=== PATIENT | male | born 1965 | race Caucasian/White ===

== ENCOUNTER 2016-10-25 09:01 | Day surgery (SDC) | payer OTHER ==
[~2016-10-25] VITALS: Ht 177.8 cm; Wt 65.5 kg
[~2016-10-25 09:01] MED LIST: AUGM500T7 PO; FENT12DI T-DERMAL; OXYC1CAP PO; OXYC5 PO; PANT20 PO
[2016-10-25 09:22] VITALS: BP 154/80; PULSE 65; RESP 20; TEMP 97.5; O2SAT 98
[2016-10-25] MEDS ORDERED: AMLO5TAB2 PO (09:50)
[2016-10-25 10:09] LABS: APTT (PATIENT) 33.1 SEC (24.3-30.1); INTERNATIONAL NORMALIZED RATIO 1.1 RATIO; PROTHROMBIN TIME - PATIENT 12.4 SEC (9.8-11.6)
[2016-10-25] MEDS ORDERED: SODIUM CHLORIDE 0.9% FLUSH 10 ML FLUSH IV FLUSH PRN (11:15)
[2016-10-25] MEDS ORDERED: LEVOFLOXACIN 500 MG PREMIX 100 ML - biliary drainage catheter/stent insertion IV SCH (11:30)
[2016-10-25] MEDS ORDERED: SODIUM CHLORIDE 0.9% 1000 ML IV SCH (11:30)
== END 2016-10-25 10:05 | disposition home or self-care (01) ==
LOC: HROP 09:01 → HRIP 09:07 → HROP 10:05
PROVIDERS: ATTEND Internal Medicine Gastroenterology
DX: C25.9 Malignant neoplasm of pancreas, unspecified (principal); I10 Essential (primary) hypertension
CPT/HCPCS: 85610; 85730; 99211; J1642; G0463

== ENCOUNTER 2017-06-26 09:58 | Day surgery (SDC) | payer OTHER ==
[~2017-06-26 09:58] MED LIST changes: +AMLO5TAB2 PO; -AUGM500T7 PO; -FENT12DI T-DERMAL; -OXYC1CAP PO; -OXYC5 PO; -PANT20 PO
[2017-06-26 10:34] VITALS: BP 180/98; PULSE 69; RESP 14; TEMP 97.7; O2SAT 98
[2017-06-26] MEDS ORDERED: LIDOCAINE HCL 1% 20 ML VIAL ONE (11:44)
[2017-06-26 11:45] VITALS: BP 144/82; PULSE 60; RESP 18; TEMP 97.8; O2SAT 99
[2017-06-26 12:10] VITALS: BP 156/82; PULSE 64; RESP 17; O2SAT 99
--- NOTE | 2017-06-26 12:14 | RADRPT ---
EXAM DATE/TIME: 06/26/2017 10:23 [facility] COMPARISON: No previous studies available for comparison. INDICATIONS : Ascites. MEDICAL HISTORY : Carcinoma, pancreas. Carcinoma, bone. Carinoma, liver. HTN. Ascites. SURGICAL HISTORY : Port placement. Biliary duct stent placement. ERCP. Percutaneous drain. ENCOUNTER: Initial ACUITY: 1 week PAIN SCORE: 5/10 LOCATION: Left lower quadrant FLUID: Total volume of 3,350 cc of clear, yellow fluid was removed. Fluid was discarded. Paracentesis was therapeutic only. Post procedure scanning reveals no hematoma or other complication. TECHNIQUE: 1. Ultrasound guidance for abdominal paracentesis. 2. Paracentesis. The risks, benefits, and alternatives to ultrasound guided paracentesis were explained to the patient in detail including the risk of bleeding and infection. Written and verbal informed consent was obt ained. With the patient on the ultrasound table, ultrasound imaging was used to select the most appropriate approach for paracentesis. Overlying skin was prepped and draped in the usual sterile fashion and wi th a local anesthetic, a dermatotomy was made with an 11 blade scalpel. A 6 [place] Bry-N-ejanvcza ca theter was introduced into the peritoneal cavity and fluid was collected. The patient tolerated the procedure well and left the ultrasound suite in stable condition. CONCLUSION: Uncomplicated ultrasound guided paracentesis. Saad Lyons Jr., MD on June 26, 2017 at 12:12 Board Certified Radiologist. This report was verified electronically.
== END 2017-06-26 12:20 | disposition home or self-care (01) ==
LOC: HRAD 09:58 → HRIP 10:02 → HRAD 12:20
PROVIDERS: ATTEND Internal Medicine Hematology & Oncology
DX: R18.8 Other ascites (principal)
CPT/HCPCS: 49083; C1729

== ENCOUNTER 2017-07-11 02:36 | Inpatient (IN) | payer MEDICAID, OTHER ==
[~2017-07-11] VITALS: Ht 172.7 cm; Wt 66.0 kg
[2017-07-11] VITALS (14 sets, daily range): BP systolic 148–182; BP diastolic 72–100; PULSE 96–124; RESP 13–24; TEMP 96–97.9; O2SAT 94–99
[2017-07-11] MEDS ORDERED: OXYC1CAP PO (03:01)
[2017-07-11] MEDS ORDERED: FURO1TAB62 PO (03:01)
--- NOTE | 2017-07-11 03:13 | PD ---
HPI Chief Complaint: Altered Mental Status Time Seen by Provider: 02:49 Travel History International Travel<30 days: No Contact w/Intl Traveler<30days: No Traveled to known affect area: No History of Present Illness HPI 51-year-old male was brought in by family member for mental confusion, increased generalized malaise and weakness, decrease in appetite, intermittent nausea vomiting for the past 2 days. Patient has history of pancreatic cancer. Patient was on Folfirinox hemotherapy. Patient was unable to tolerate more chemotherapy due to cytopenia. Chemotherapy was changed to Keytruda. Patient had one cycle of the children 2 weeks ago. Family member states the patient has increasing delirium, confusion, decreased appetite with nausea vomiting for the past 2 days. Patient has history of chronic abdominal pain with ascites that the post paracentesis in the past. Patient has history hypertension and was on amlodipine and past. Patient has not taken his amlodipine since April. Patient has been taking Lasix 20 mg as needed for swelling and ascites. Patient had chronic abdominal pain with ascites. Patient has history of COPD, metal stent placement biliary duct, hypertension. Family member reported no fever at home. Family members reported no coughing congestion. Family member reported increasing jaundice of the skin in the eyes for the past 2 days. PFSH Past Medical History Heart Rhythm Problems: No Cancer: Yes (PANCREATIC ) Cardiovascular Problems: Yes (HTN) High Cholesterol: No Chemotherapy: Yes Chest Pain: No Congestive Heart Failure: No Endocrine: No Gastrointestinal Disorders: No Genitourinary: No Heparin Induced Thrombocytopen: No Hypertension: Yes Immune Disorder: No Implanted Vascular Access Dvce: No Musculoskeletal: No Neurologic: No Psychiatric: No Reproductive: No Respiratory: No Immunizations Current: No Radiation Therapy: No Sickle Cell Disease: No Past Surgical History Thoracic Surgery: Yes (POT PLACEMENT) Other Surgery: No Social History Alcohol Use: No (6-12 beer/day for the past 30 years) Tobacco Use: No Substance Use: No Allergies-Medications (Allergen,Severity, Reaction): Coded Allergies: No Known Allergies (Unverified , 02/24/16) Reported Meds & Prescriptions Reported Meds & Active Scripts Active Reported Amlodipine (Amlodipine Besylate) 5 Mg Tab 5 Mg PO DAILY Review of Systems General / Constitutional: No: Fever Eyes: No: Visual changes HENT: No: Headaches Cardiovascular: No: Chest Pain or Discomfort Respiratory: No: Shortness of Breath Gastrointestinal: Positive: Nausea, Vomiting, No: Abdominal Pain Genitourinary: No: Dysuria Musculoskeletal: No: Pain Skin: No Rash Neurologic: No: Weakness Psychiatric: No: Depression Endocrine: No: Polydipsia Hematologic/Lymphatic: No: Easy Bruising Physical Exam Narrative GENERAL: Thin male, lying in bed, minimal vocalization, no acute distress. SKIN: Focused skin assessment warm/dry. The skin is jaundice. HEAD: Normocephalic. EYES: Bilateral scleral icterus. No injection or drainage. NECK: Supple, trachea midline. No JVD or lymphadenopathy. CARDIOVASCULAR: Regular rate and rhythm without murmurs, gallops, or rubs. RESPIRATORY: Breath sounds equal bilaterally. No accessory muscle use. GASTROINTESTINAL: Abdomen soft, non-tender, nondistended. MUSCULOSKELETAL: No cyanosis, or edema. BACK: Nontender without obvious deformity. No CVA tenderness. Neurologic exam: Patient's awake and alert however minimal globalization. Patient moves all extremity well. No obvious focal neurological deficit. Data Data Last Documented VS Vital Signs Date Time Temp Pulse Resp B/P (MAP) Pulse Ox O2 Delivery O2 Flow Rate FiO2 07/11/17 04:35 96 20 151/77 (101) 96 Room Air 07/11/17 02:38 97.9 Orders Orders Complete Blood Count With Diff (07/11/17 03:01) Comprehensive Metabolic Panel (07/11/17 03:01) Prothrombin Time / Inr (Pt) (07/11/17 03:01) Act Partial Throm Time (Ptt) (07/11/17 03:01) Blood Culture (07/11/17 03:01) Lipase (07/11/17 03:01) Urinalysis - C+S If Indicated (07/11/17 03:01) Ammonia (07/11/17 03:01) Chest, Single Ap (07/11/17 03:01) Ct Brain W/O Iv Contrast(Rout) (07/11/17 03:01) Iv Access Insert/Monitor (07/11/17 03:01) Ecg Monitoring (07/11/17 03:01) Oximetry (07/11/17 03:01) Lactic Acid (07/11/17 03:01) Sodium Chlor 0.9% 1000 Ml Inj (Ns 1000 M (07/11/17 04:30) Vancomycin Inj (Vancomycin Inj) (07/11/17 04:30) Piperacil-Tazo 3.375 Gm Premix (Zosyn 3. (07/11/17 04:30) Us Abdomen Gallbladder (07/11/17 04:56) Labs Laboratory Tests Test 07/11/17 03:15 07/11/17 04:20 Prothrombin Time 39.5 SEC Prothromb Time International Ratio 3.9 RATIO Activated Partial Thromboplast Time 50.1 SEC Blood Urea Nitrogen 37 MG/DL Creatinine 1.23 MG/DL Random Glucose 101 MG/DL Total Protein 7.4 GM/DL Albumin 2.1 GM/DL Calcium Level 8.0 MG/DL Alkaline Phosphatase 184 U/L Aspartate Amino Transf (AST/SGOT) 91 U/L Alanine Aminotransferase (ALT/SGPT) 47 U/L Total Bilirubin 21.5 MG/DL Sodium Level 134 MEQ/L Potassium Level 4.0 MEQ/L Chloride Level 99 MEQ/L Carbon Dioxide Level 25.9 MEQ/L Anion Gap 9 MEQ/L Estimat Glomerular Filtration Rate 62 ML/MIN Lactic Acid Level 6.3 mmol/L Ammonia 91 MCMOL/L Lipase 46 U/L MDM Medical Decision Making Medical Screen Exam Complete: Yes Emergency Medical Condition: Yes Interpretation(s) Last Impressions Head CT 07/11/17300 Signed Impressions: Service Date/Time: Tuesday, July 11, 2017 03:23 - CONCLUSION: No acute disease. Saad Lyons Jr., MD Chest X-Ray 07/11/17300 Signed Impressions: Service Date/Time: Tuesday, July 11, 2017 03:16 - CONCLUSION: Blunting of the right costophrenic angle I either related to a small effusion or pleural scarring. Otherwise, no infiltrates. Saad Lyons Jr., MD 4:21 AM. Lactic acid 6.3 . Ammonia 91. INR 3.9. Differential Diagnosis Differential diagnosis including acute exacerbation of chronic condition, hepatitis, pancreatitis, biliary obstruction, electrolyte imbalance, dehydration , sepsis. Narrative Course 51-year-old male with increasing jaundice, delirium, confusion, decreased appetite, nausea vomiting. History of pancreatic cancer. Patient is on chemotherapy. Normal saline solution 1 L IV bolus. Vancomycin 1 g IV. Zosyn 3.375 g IV. Diagnosis Primary Impression: Jaundice Additional Impression: Hepatic encephalopathy Admitting Information Admitting Physician Requests: Admit Edin Blanc MD Jul 11, 2017 03:13
[2017-07-11 03:47] LABS: INTERNATIONAL NORMALIZED RATIO 3.9 RATIO; PROTHROMBIN TIME - PATIENT 39.5 SEC (9.8-11.6)
--- NOTE | 2017-07-11 03:48 | RADRPT ---
EXAM DATE/TIME: 07/11/2017 03:16 [facility] COMPARISON: No previous studies available for comparison. INDICATIONS : Short of breath. MEDICAL HISTORY : Carcinoma, pancreas. Carcinoma, bone. Carinoma, liver. HTN. Ascites. SURGICAL HISTORY : Port placement. Biliary duct stent placement. Percutaneous drain. ENCOUNTER: Initial ACUITY: 1 day PAIN SCORE: Non-responsive. LOCATION: Bilateral chest FINDINGS: A single view of the chest demonstrates the lungs to be symmetrically aerated without evidence of mas s, infiltrate or effusion. Blunting of the right costophrenic angle. The cardiomediastinal contours are unremarkable. Osseous structures are intact. CONCLUSION: Blunting of the right costophrenic angle I either related to a small effusion or pleural scarring. Ot herwise, no infiltrates. Saad Lyons Jr., MD on July 11, 2017 at 3:46 Board Certified Radiologist. This report was verified electronically.
--- NOTE | 2017-07-11 03:57 | RADRPT ---
EXAM DATE/TIME: 07/11/2017 03:23 [facility] COMPARISON: No previous studies available for comparison. INDICATIONS : Altered mental status. RADIATION DOSE: 33.02 CTDIvol (mGy) MEDICAL HISTORY : Cerebrovascular disease. Carcinoma, pancreas. Hypertension. SURGICAL HISTORY : None. ENCOUNTER: Initial ACUITY: 1 day PAIN SCALE: 0/10 LOCATION: cranial TECHNIQUE: Multiple contiguous axial images were obtained of the head. Using automated exposure control and adj ustment of the mA and/or kV according to patient size, radiation dose was kept as low as reasonably a chievable to obtain optimal diagnostic quality images. DICOM format image data is available electro nically for review and comparison. FINDINGS: CEREBRUM: The ventricles are normal for age. No evidence of midline shift, mass lesion, hemorrhage or acute in farction. No extra-axial fluid collections are seen. POSTERIOR FOSSA: The cerebellum and brainstem are intact. The 4th ventricle is midline. The cerebellopontine angle i s unremarkable. EXTRACRANIAL: The visualized portion of the orbits is intact. SKULL: The calvaria is intact. No evidence of skull fracture. CONCLUSION: No acute disease. Saad Lyons Jr., MD on July 11, 2017 at 3:55 Board Certified Radiologist. This report was verified electronically.
[2017-07-11] MEDS ORDERED: VANCOMYCIN INJ 1,000 MG in SODIUM CHLOR 0.9% 250 ML INJ 250 ML IV ONE (04:30)
[2017-07-11] MEDS ORDERED: SODIUM CHLOR 0.9% 1000 ML INJ 1,000 ML IV ONE (04:30)
[2017-07-11] MEDS ORDERED: PIPERACIL-TAZO 3.375 GM PREMIX 50 ML IV ONE (04:30)
[2017-07-11 04:44] LABS: ALBUMIN 2.1 GM/DL (3.4-5.0); ALKALINE PHOSPHATASE 184 U/L (45-117); ALT (GPT) 47 U/L (12-78); AST (GOT) 91 U/L (15-37); BICARBONATE 25.9 MEQ/L (21.0-32.0); BLOOD UREA NITROGEN 37 MG/DL (7-18); CHLORIDE 99 MEQ/L (98-107); CREATININE 1.23 MG/DL (0.60-1.30); GLOMERULAR FILTRATION RATE 62 ML/MIN (>89); GLUCOSE,RANDOM 101 MG/DL (74-106); LIPASE 46 U/L (73-393); SODIUM (NA) 134 MEQ/L (136-145); TOTAL BILIRUBIN ADULT 21.5 MG/DL (0.2-1.0); TOTAL PROTEIN 7.4 GM/DL (6.4-8.2)
[2017-07-11] MEDS ORDERED: BISACODYL 10 MG SUPP RECTAL PRN (05:15)
[2017-07-11] MEDS ORDERED: NALOXONE HCL 0.4 MG/ML AMP IV PUSH PRN (05:15)
[2017-07-11] MEDS ORDERED: SODIUM CHLORIDE 0.9% FLUSH 10 ML FLUSH IV FLUSH PRN (05:15)
[2017-07-11] MEDS ORDERED: SENNOSIDES 8.6 MG TAB PO PRN (05:15)
[2017-07-11] MEDS ORDERED: MAGNESIUM HYDROXIDE SUSP 30 ML CUP PO PRN (05:15)
[2017-07-11 05:33] LABS: AUTOMATED NEUTROPHIL # 6.2 TH/MM3 (1.8-7.7); BASOPHIL % 0.3 % (0.0-2.0); EOSINOPHIL % 0.6 % (0.0-4.0); HEMATOCRIT 36.7 % (39.0-51.0); HEMOGLOBIN 13.1 GM/DL (13.0-17.0); LYMPH % 11.7 % (9.0-44.0); LYMPHOCYTE # 0.9 TH/MM3 (1.0-4.8); MEAN CELL VOLUME 96.7 FL (80.0-100.0); MEAN CORPUSCULAR HEMOGLOBIN 34.4 PG (27.0-34.0); MEAN CORPUSCULAR HGB CONC 35.6 % (32.0-36.0); MEAN PLATELET VOLUME 7.7 FL (7.0-11.0); MONO % 7.1 % (0.0-8.0); MONOCYTE # 0.6 TH/MM3 (0-0.9); NEUT % 80.3 % (16.0-70.0); PLATELET COUNT 83 TH/MM3 (150-450); RED CELL DISTRIBUTION WIDTH 17.4 % (11.6-17.2); WHITE BLOOD COUNT 7.8 TH/MM3 (4.0-11.0)
[2017-07-11] MEDS ORDERED: Vancomycin Consult Pharmacy 1 EA OTHER SCH (05:45)
--- NOTE | 2017-07-11 05:59 | HHI.HP ---
[facility] Primary Care Physician Admission Diagnosis jaundice. Hepatic encephalopathy. History of pancreatic cancer. Diagnoses: Travel History International Travel<30 Days: No Contact w/Intl Traveler <30 Da: No Traveled to Known Affected Are: No History of Present Illness 51-year-old male with a past medical history significant for pancreatic cancer and hypertension presents to the emergency department with altered mental status that began yesterday. The patient's reports that he has had intermittent coughing and vomiting for the past 2 days. She reports that yesterday he became altered describing him as confused and disoriented. The patient did not know where he was when he was in his own home. She also reports noticing increased scleral icterus and jaundice that began on 07/08. Vision is currently undergoing chemotherapy. His oncologist is Dr. Tan. On arrival to the emergency department the patient was tachycardic at 124. He was afebrile at 97.9. BP 179/100. Pulse ox 95% on room air. Lab values significant for a total bilirubin of 21.5 (was 1.8 on 06/28). Ammonia 91. Lactic acid 6.3. CBC pending. Head CT negative for acute intracranial process. The patient is altered, A&O 0. Review of Systems Unable to obtain secondary to patient's clinical condition Past Family Social History Past Medical History Hypertension Pancreatic cancer diagnosed 02/24/16 Past Surgical History Vasectomy Port placement in 2015 CT-guided biopsy in 2015 Percutaneous drain in 2059 Reported Medications Reported Meds & Active Scripts Active Reported Amlodipine (Amlodipine Besylate) 5 Mg Tab 5 Mg PO DAILY Allergies: Coded Allergies: No Known Allergies (Unverified , 02/24/16) Family History Negative for CAD/DM Social History Per , the patient does not drink alcohol, smoke cigarettes or take illicit drugs Physical Exam Vital Signs Vital Signs Date Time Temp Pulse Resp B/P (MAP) Pulse Ox O2 Delivery O2 Flow Rate FiO2 07/11/17 04:35 96 20 151/77 (101) 96 Room Air 07/11/17 03:38 109 24 175/88 (117) 97 Room Air 07/11/17 03:27 106 22 98 Room Air 07/11/17 02:55 108 24 182/98 (126) 99 Room Air 07/11/17 02:38 97.9 124 18 179/100 (126) 95 Room Air Physical Exam GENERAL: Cachectic male lying in bed SKIN: Jaundice, + scleral icterus HEAD: Atraumatic. Normocephalic. No temporal or scalp tenderness. EYES: Pupils equal round and reactive. Extraocular motions intact. ENT: Nose without bleeding, purulent drainage or septal hematoma. Throat without erythema, tonsillar hypertrophy or exudate. Uvula midline. Airway patent. NECK: Trachea midline. No JVD or lymphadenopathy. CARDIOVASCULAR: Regular rate and rhythm without murmurs, gallops, or rubs. RESPIRATORY: Clear to auscultation. Breath sounds equal bilaterally. No wheezes , rales, or rhonchi. GASTROINTESTINAL: Abdomen soft, non-tender, + ascites. No guarding. MUSCULOSKELETAL: 2+ pitting edema to the midshin NEUROLOGICAL: Patient babbling incoherently. Unable to answer questions. Moves all 4 extremities spontaneously. Laboratory Laboratory Tests Test 07/11/17 03:15 07/11/17 05:15 Prothrombin Time 39.5 Prothromb Time International Ratio 3.9 Activated Partial Thromboplast Time 50.1 Blood Urea Nitrogen 37 Creatinine 1.23 Random Glucose 101 Total Protein 7.4 Albumin 2.1 Calcium Level 8.0 Alkaline Phosphatase 184 Aspartate Amino Transf (AST/SGOT) 91 Alanine Aminotransferase (ALT/SGPT) 47 Total Bilirubin 21.5 Sodium Level 134 Potassium Level 4.0 Chloride Level 99 Carbon Dioxide Level 25.9 Anion Gap 9 Estimat Glomerular Filtration Rate 62 Lactic Acid Level 6.3 Ammonia 91 Lipase 46 Date/Time Source Procedure Growth Status 07/11/17 03:15 Blood Peripheral Aerobic Blood Culture Pending Received 07/11/17 03:15 Blood Peripheral Anaerobic Blood Culture Pending Received Result Diagram: 07/11/17 0315 Caprini VTE Risk Assessment Caprini VTE Risk Assessment: Mod/High Risk (score >= 2) Caprini Risk Assessment Model Point Value = 1 Point Value = 2 Point Value = 3 Point Value = 5 Age 41-60 Minor surgery BMI > 25 kg/m2 Swollen legs Varicose veins or History of unexplained or recurrent spontaneous Oral contraceptives or hormone replacement Sepsis (< 1 month) Serious lung disease, including pneumonia (< 1 month) Abnormal pulmonary function Acute myocardial infarction Congestive heart failure (< 1 month) History of inflammatory bowel disease Medical patient at bed rest Age 61-74 Arthroscopic surgery Major open surgery (> 45 min) Laparoscopic surgery (> 45 min) Malignancy Confined to bed (> 72 hours) Immobilizing plaster cast Central venous access Age >= 75 History of VTE Family history of VTE Factor V Leiden Prothrombin [id number] Lupus anticoagulant Anticardiolipin antibodies Elevated serum homocysteine Heparin-induced thrombocytopenia Other congenital or acquired thrombophilia Stroke (< 1 month) Elective arthroplasty Hip, pelvis, or leg fracture Acute spinal cord injury (< 1 month) Prophylaxis Regimen Total Risk Factor Score Risk Level Prophylaxis Regimen 0-1 Low Early ambulation 2 Moderate Order ONE of the following: *Sequential Compression Device (SCD) *Heparin 5000 units SQ BID 3-4 Higher Order ONE of the following medications: *Heparin 5000 units SQ TID *Enoxaparin/Lovenox 40 mg SQ daily (WT < 150 kg, CrCl > 30 mL/min) *Enoxaparin/Lovenox 30 mg SQ daily (WT < 150 kg, CrCl > 10-29 mL/min) *Enoxaparin/Lovenox 30 mg SQ BID (WT < 150 kg, CrCl > 30 mL/min) AND/OR *Sequential Compression Device (SCD) 5 or more Highest Order ONE of the following medications: *Heparin 5000 units SQ TID (Preferred with Epidurals) *Enoxaparin/Lovenox 40 mg SQ daily (WT < 150 kg, CrCl > 30 mL/min) *Enoxaparin/Lovenox 30 mg SQ daily (WT < 150 kg, CrCl > 10-29 mL/min) *Enoxaparin/Lovenox 30 mg SQ BID (WT < 150 kg, CrCl > 30 mL/min) AND *Sequential Compression Device (SCD) Assessment and Plan Assessment and Plan Assessment/plan: 1. Pancreatic cancer/AMS/Jaundice/bilirubinemia/hepatic encephalopathy T bili 21.5, ammonia 91, AST/ALT 91/47 Patient with history of pancreatic duct stent, concern for blockage. Ultrasound pending for further evaluation. Consult gastroenterology, medical oncology - appreciate recommendations Lactulose for elevated ammonia 2. Elevated lactic acid Suspect secondary to above Chest x-ray without infiltrates CBC pending UA pending Vancomycin/Zosyn until infectious rule out completed Holding IV fluid hydration secondary to ascites and low albumin 3. Ascites Chronic Last paracentesis on 06/26 Continue Lasix 4. Hypertension Continue amlodipine FEN NPO Electrolytes: monitor and replete prn SCDs Holding pharmacologic anticoagulation as patient may require procedure Physician Certification 2 Midnight Certification Type: Admission for Inpatient Services Order for Inpatient Services The services are ordered in accordance with Medicare regulations or non- Medicare payer requirements, as applicable. In the case of services not specified as inpatient-only, they are appropriately provided as inpatient services in accordance with the 2-midnight benchmark. Estimated LOS (days): 2 2 days is the estimated time the patient will need to remain in the hospital, assuming treatment plan goals are met and no additional complications. Post-Hospital Plan: Not yet determined Leti Brennan MD Jul 11, 2017 05:59
[2017-07-11 06:29] LABS: BANDS 18 % (0-6); LYMPHOCYTES 12 % (9-44); MONOCYTES 3 % (0-8); NEUTROPHIL # MANUAL DIFF 6.6 TH/MM3 (1.8-7.7); POLYS (SEG NEUTROPHILS) 66 % (16-70)
[2017-07-11 06:30] LABS: TOXIC VACUOLATION PRESENT (NONE SEEN)
[2017-07-11] MEDS: SODIUM CHLORIDE 0.9% FLUSH 10 ML FLUSH IV FLUSH SCH ×2 (08:19→19:47)
--- NOTE | 2017-07-11 08:32 | RADRPT ---
EXAM DATE/TIME: 07/11/2017 07:54 [facility] COMPARISON: CT ABDOMEN & PELVIS W/O CONTRAST, May 19, 2017, 14:16. US GUIDED ABD PARACENTESIS, June 26, 2017, 10:23. INDICATIONS : Right upper quadrant pain. MEDICAL HISTORY : Carcinoma, pancreas. Hypertension. SURGICAL HISTORY : Port placement. Biliary duct stent placement. Chemotherapy. ENCOUNTER: Initial ACUITY: 1 day PAIN SCORE: 7/10 LOCATION: Right upper quadrant MEASUREMENTS: LIVER: 16.7 cm length FINDINGS: The examination was limited due to the patient being in abdominal pain. LIVER: The liver is heterogeneous and quite small in size consistent with cirrhosis. There is ascites diffus mello throughout the upper abdomen. The patient has a known 1.9 cm lesion within the liver. This is not effectively evaluated by ultrasound. COMMON DUCT: No intraluminal mass or stone visualized. GALLBLADDER: There is minimal sludge in the dependent portion the gallbladder. No stones are seen. There is some g allbladder wall thickening however, this is not an unexpected finding in a trace of ascites. PANCREAS: The patient has known pancreatic carcinoma. The pancreas was not well-visualized RIGHT KIDNEY: No evidence of hydronephrosis, stone, or mass. CONCLUSION: 1. There is diffuse abdominal ascites. 2. The liver appears quite small and heterogeneous in echotexture consistent with cirrhosis. The noman ent has known pancreatic cancer with several small hepatic lesions. These were not seen by the ultras ound. I do not see evidence of intrahepatic biliary ductal dilation. The patient has a known biliary stent in place. 3. There is minimal sludge in the dependent portion the gallbladder. There is gallbladder wall thicke evi however, this is not an unexpected finding with the presence of ascites. Johnathan Marquis MD on July 11, 2017 at 8:26 Board Certified Radiologist. This report was verified electronically.
[2017-07-11 08:49] LABS: LACTIC ACID SEPSIS PROTOCOL 3.8 mmol/L (0.4-2.0)
[2017-07-11] MEDS ORDERED: FUROSEMIDE 20 MG TAB PO SCH (09:00)
[2017-07-11] MEDS: DOCUSATE SODIUM 50 MG/SENNA 8.6 MG TAB PO SCH ×2 (09:00→21:00)
[2017-07-11] MEDS: LACTULOSE SYRUP 20 GM/30 ML CUP PO SCH ×4 (09:50→21:17)
[2017-07-11] MEDS: amLODIPine BESYLATE 5 MG TAB PO SCH (09:51)
[2017-07-11] MEDS: RIFAXIMIN 550 MG TAB PO SCH ×2 (09:51→21:17)
--- NOTE | 2017-07-11 10:42 | HHI.PR ---
Subjective Remarks 51-year-old male with a past medical history significant for pancreatic cancer and hypertension presents to the emergency department with altered mental status that began yesterday. The patient's reports that he has had intermittent coughing and vomiting for the past 2 days. She reports that yesterday he became altered describing him as confused and disoriented. The patient did not know where he was when he was in his own home. She also reports noticing increased scleral icterus and jaundice that began on 07/08. PATIENT is currently undergoing chemotherapy. His oncologist is Dr. Tan. On arrival to the emergency department the patient was tachycardic at 124. He was afebrile at 97.9. BP 179/100. Pulse ox 95% on room air. Lab values significant for a total bilirubin of 21.5 (was 1.8 on 06/28). Ammonia 91. Lactic acid 6.3. CBC pending. Head CT negative for acute intracranial process. The patient is altered, A&O 0. 01-02 patient remains very confused. Started on rifaximin. Make sure he is on lactulose. Get a.m. labs Get physical therapy and occupational therapy to eval and treat Await oncology evaluation Consult palliative care Severe coagulopathy with very poor prognosis Much elevated bilirubin Objective Vitals Vital Signs Date Time Temp Pulse Resp B/P (MAP) Pulse Ox O2 Delivery O2 Flow Rate FiO2 07/11/17 08:06 97.7 102 18 171/92 (118) 95 07/11/17 06:29 175/90 (118) 07/11/17 06:27 99 13 179/95 (123) 96 07/11/17 04:35 96 20 151/77 (101) 96 Room Air 07/11/17 03:38 109 24 175/88 (117) 97 Room Air 07/11/17 03:27 106 22 98 Room Air 07/11/17 02:55 108 24 182/98 (126) 99 Room Air 07/11/17 02:38 97.9 124 18 179/100 (126) 95 Room Air Result Diagram: 07/11/17 0515 07/11/17 0315 Other Results Laboratory Tests Test 07/11/17 03:15 07/11/17 05:15 07/11/17 08:19 Prothrombin Time 39.5 SEC Prothromb Time International Ratio 3.9 RATIO Activated Partial Thromboplast Time 50.1 SEC Blood Urea Nitrogen 37 MG/DL Creatinine 1.23 MG/DL Random Glucose 101 MG/DL Total Protein 7.4 GM/DL Albumin 2.1 GM/DL Calcium Level 8.0 MG/DL Alkaline Phosphatase 184 U/L Aspartate Amino Transf (AST/SGOT) 91 U/L Alanine Aminotransferase (ALT/SGPT) 47 U/L Total Bilirubin 21.5 MG/DL Sodium Level 134 MEQ/L Potassium Level 4.0 MEQ/L Chloride Level 99 MEQ/L Carbon Dioxide Level 25.9 MEQ/L Anion Gap 9 MEQ/L Estimat Glomerular Filtration Rate 62 ML/MIN Lactic Acid Level 6.3 mmol/L 3.8 mmol/L Ammonia 91 MCMOL/L Lipase 46 U/L White Blood Count 7.8 TH/MM3 Red Blood Count 3.80 MIL/MM3 Hemoglobin 13.1 GM/DL Hematocrit 36.7 % Mean Corpuscular Volume 96.7 FL Mean Corpuscular Hemoglobin 34.4 PG Mean Corpuscular Hemoglobin Concent 35.6 % Red Cell Distribution Width 17.4 % Platelet Count 83 TH/MM3 Mean Platelet Volume 7.7 FL Neutrophils (%) (Auto) 80.3 % Lymphocytes (%) (Auto) 11.7 % Monocytes (%) (Auto) 7.1 % Eosinophils (%) (Auto) 0.6 % Basophils (%) (Auto) 0.3 % Neutrophils # (Auto) 6.2 TH/MM3 Lymphocytes # (Auto) 0.9 TH/MM3 Monocytes # (Auto) 0.6 TH/MM3 Eosinophils # (Auto) 0.0 TH/MM3 Basophils # (Auto) 0.0 TH/MM3 CBC Comment AUTO DIFF Differential Total Cells Counted 100 Neutrophils % (Manual) 66 % Band Neutrophils % 18 % Lymphocytes % 12 % Monocytes % 3 % Eosinophils % 1 % Neutrophils # (Manual) 6.6 TH/MM3 Differential Comment FINAL DIFF MANUAL Atypical Lymphocytes % Toxic Vacuolation PRESENT Platelet Estimate LOW Platelet Morphology Comment NORMAL Basophilic Stippling FAINT Imaging Last Impressions Gall Bladder Ultrasound 07/11/17 0456 Signed Impressions: Service Date/Time: Tuesday, July 11, 2017 07:54 - CONCLUSION: 1. There is diffuse abdominal ascites. 2. The liver appears quite small and heterogeneous in echotexture consistent with cirrhosis. The patient has known pancreatic cancer with several small hepatic lesions. These were not seen by the ultrasound. I do not see evidence of intrahepatic biliary ductal dilation. The patient has a known biliary stent in place. 3. There is minimal sludge in the dependent portion the gallbladder. There is gallbladder wall thickening however, this is not an unexpected finding with the presence of ascites. Johnathan Marquis MD Head CT 07/11/17300 Signed Impressions: Service Date/Time: Tuesday, July 11, 2017 03:23 - CONCLUSION: No acute disease. Saad Lyons Jr., MD Chest X-Ray 07/11/17300 Signed Impressions: Service Date/Time: Tuesday, July 11, 2017 03:16 - CONCLUSION: Blunting of the right costophrenic angle I either related to a small effusion or pleural scarring. Otherwise, no infiltrates. Saad Lyons Jr., MD Objective Remarks GENERAL: Very altered not able to answer questions appropriately very jaundiced yellow very confused not appropriate SKIN: Warm and dry. Severe jaundice HEAD: Atraumatic. Normocephalic. EYES: Pupils equal and round. Severe scleral icterus. No injection or drainage. ENT: No nasal bleeding or discharge. Mucous membranes pink and moist. Tongue is midline NECK: Trachea midline. No JVD. Supple CARDIOVASCULAR: Regular rate and rhythm. S1 and S2 no S3 or S4 RESPIRATORY: No accessory muscle use. Few rhonchi. Breath sounds equal bilaterally. GASTROINTESTINAL: Abdomen soft, non-tender. Hepatic and splenic margins not palpable. Positive Distended positive ascites MUSCULOSKELETAL: Extremities without clubbing, cyanosis, or edema. No obvious deformities. NEUROLOGICAL: Awake and alert. No obvious cranial nerve deficits. Motor grossly within normal limits. 4 out of 5 muscle strength in the arms and legs. ABNormal speech. PSYCHIATRIC: INAppropriate mood and affect; insight and judgment ABnormal. Very confused not Medications and IVs Current Medications Sodium Chloride 1,000 ml @ 999 mls/hr BOLUS ONCE IV Last administered on at 04:30; Start 07/11/17 at 04:30; Stop 07/11/17 at 05:30; Status DC Vancomycin HCl 1000 mg/Sodium Chloride 250 ml @ 250 mls/hr ONCE ONCE IV Last administered on 07/11/17at 04:30; Start 07/11/17 at 04:30; Stop 07/11/17 at 05:29; Status DC Piperacillin Sod/ Tazobactam Sod 50 ml @ 100 mls/hr ONCE ONCE IV Last administered on 07/11/17at 04:30; Start 07/11/17 at 04:30; Stop 07/11/17 at 04:59; Status DC Sodium Chloride (NS Flush) 2 ml UNSCH PRN IV FLUSH FLUSH AFTER USING IV ACCESS ; Start 07/11/17 at 05:15 Sodium Chloride (NS Flush) 2 ml BID IV FLUSH Last administered on 07/11/17at 08: 19; Start 07/11/17 at 09:00 Naloxone HCl (Narcan Inj) 0.4 mg UNSCH PRN IV PUSH SEE LABEL COMMENTS; Start at 05:15 Senna/Docusate Sodium (Tatyana-Colace) 1 tab BID PO ; Start 07/11/17 at 09:00 Magnesium Hydroxide (Milk Of Magnesia Liq) 30 ml Q12H PRN PO Mild constipation ; Start 07/11/17 at 05:15 Sennosides (Senokot) 17.2 mg Q12H PRN PO Moderate constipation; Start 07/11/17 at 05:15 Bisacodyl (Dulcolax Supp) 10 mg DAILY PRN RECTAL SEVERE CONSITIPATION; Start at 05:15 Lactulose (Lactulose Liq) 30 ml QID PO Last administered on 07/11/17at 09:50; Start 07/11/17 at 09:00 Piperacillin Sod/ Tazobactam Sod 50 ml @ 100 mls/hr Q6H IV ; Start 07/11/17 at 11:00 Pharmacy Profile Note 0 ml @ 0 mls/hr UNSCH OTHER ; Start 07/11/17 at 05:45 Vancomycin HCl 1000 mg/Sodium Chloride 250 ml @ 250 mls/hr Q12H IV ; Start 07/11 at 16:30; Status UNV Amlodipine Besylate (Norvasc) 5 mg DAILY PO Last administered on 07/11/17at 09:51 ; Start 07/11/17 at 09:00 Furosemide (Lasix) 20 mg DAILY PO Last administered on 07/11/17at 09:50; Start at 09:00 Oxycodone HCl (Roxicodone) 5 mg Q6H PRN PO PAIN; Start 07/11/17 at 06:00 Rifaximin (Xifaxan) 550 mg BID PO Last administered on 07/11/17at 09:51; Start at 09:00 A/P Assessment and Plan Assessment/plan: 1. Pancreatic cancer/AMS/Jaundice/bilirubinemia/hepatic encephalopathy T bili 21.5, ammonia 91, AST/ALT 91/47 Patient with history of pancreatic duct stent, concern for blockage. Ultrasound pending for further evaluation. Consult gastroenterology, medical oncology - appreciate recommendations Lactulose for elevated ammonia We will add rifaximin 2. Elevated lactic acid Suspect secondary to above Chest x-ray without infiltrates CBC pending UA pending Vancomycin/Zosyn until infectious rule out completed Holding IV fluid hydration secondary to ascites and low albumin 3. Ascites Chronic Last paracentesis on 06/26 Continue Lasix 4. Hypertension Continue amlodipine 5. Coagulopathy severe probably secondary to liver metastases needs palliative care consult Physical therapy and occupational therapy to eval and treat Poor prognosis - FEN NPO Electrolytes: monitor and replete prn SCDs Holding pharmacologic anticoagulation as patient may require procedure--patient is currently self anticoagulating due to severe coagulopathy Discharge Planning Consult palliative care Needs to be a full DO NOT RESUSCITATE Patient's prognosis looks very poor Robles Rosales DO Jul 11, 2017 10:41
[2017-07-11] MEDS: PIPERACIL-TAZO 3.375 GM PREMIX 50 ML IV SCH ×3 (11:25→23:49)
--- NOTE | 2017-07-11 14:01 | PD.CONS ---
Consult Service Palliative Care Consult Requested By Dr. Rosales . Primary Care Physician No Primary Care Physician Reason for Consultation a. To assist with evaluation and management of symptoms including: weakness , n/v, pain, encephalopathy b. To assist medical decision maker(s) with: better understanding of current medical conditions; weighing benefits/burdens of medical treatment options; making medical treatment decisions. (Suzanne Fernandez) HPI History of Present Illness This 51-year-old male presented to the ED on 07/11/17 with family for generalized malaise, weakness, decreased appetite, some delirium, intermittent nausea/ vomiting 2 days. He has known history of pancreatic cancer. Patient last completed 1 cycle of Keytruda approximately 2 weeks ago. Patient also with history of ongoing abdominal pain with ascites requiring paracentesis. Patient has been on diuretics to aid with ascites management. Patient with other medical history of COPD, stent placement biliary duct, hypertension. Family reports no fever, no coughing, no congestion. Positive for increased jaundice of skin and eyes 2 days. * ED course: CT brain no acute process. CXR= blunting right costophrenic angle small effusion versus pleural scarring per radiologist read. No infiltrates. Total bilirubin 21.5, alkaline phosphatase 184, AST 91, ALT 47. INR 3.9. Lactic acid 6.3. Ammonia 91. Started on IV fluids, empiric antibiotics vancomycin, Zosyn. ED physician notes patient confused. Abdominal ultrasound pending. GI, oncology consult pending. Cisneros cultures pending. * Started on lactulose, rifaximin. PT and OT consulted. Palliative care consulted to assist with clarification of goals of treatment. WBC 7.8, hemoglobin 13.1, hematocrit 36.7, platelet 83. * Gallbladder ultrasound= There is diffuse abdominal ascites. 2. The liver appears quite small and heterogeneous in echotexture consistent with cirrhosis. The patient has known pancreatic cancer with several small hepatic lesions. These were not seen by the ultrasound. I do not see evidence of intrahepatic biliary ductal dilation. The patient has a known biliary stent in place. 3. There is minimal sludge in the dependent portion the gallbladder. There is gallbladder wall thickening however, this is not an unexpected finding with the presence of ascites Pt seen in room, at bedside. He is cachectic, ill appearing. awake, at times restless moving around in bed. Appears confused, does not verbalize for me. Intermittently follows commands. Moving all 4 extremities. Met w at bedside. Additional oncology history per review of electronic records: == Patient originally diagnosed February, presenting symptom of jaundice which his coworkers recommended he seek medical treatment for. 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 Dr. Peguero evaluated for possible future surgical procedures, though patient not a surgical candidate at that time. == May 2016 some metastatic process identified; patient required treatment for RUQ abscess after biliary drain removal. Repeat staging with disease outside of pancreas. == September 2016 patient completed chemotherapy in July folfox, folfirenox, however due to ongoing thrombocytopenia unable to receive further treatment; continues to follow with oncology. Weight 68.8 kg == February 2017 outpatient oncology records indicate continued disease progression. patient w/ continued weakness, fatigue and some weight loss weight 60 kg. == July 05, 2017- patient status post completion 1 cycle Keytruda. Patient requiring some paracentesis for ascites though noted to not relieve discomfort. Patient with ongoing progression on cytotoxic agents. Function/Cognitive Trajectory lives at home w , required some assist w ADLs. Periods of confusion. . (Suzanne Fernandez) Review of Systems Constitutional: COMPLAINS OF: Fatigue, Weight loss, Change in appetite, Pain ( abdominal), Generalized weakness, DENIES: Fever Ears, nose, mouth, throat: DENIES: Oral lesions, Throat pain Respiratory: DENIES: Cough, Shortness of breath Cardiovascular: COMPLAINS OF: Lower Extremity Edema (chronic), DENIES: Chest pain Gastrointestinal: COMPLAINS OF: Abdominal pain (chronic), Nausea, Vomiting, Anorexia Hematologic/Lymphatics: COMPLAINS OF: Bruising Psychiatric: COMPLAINS OF: Confusion (worsened in the past few days) (Suzanne Fernandez) Past Family Social History Coded Allergies: MRI PRECAUTION (Verified Allergy, Unknown, metal right mandaeism not scan unless pt is alert and oriented, 07/14/17) please do not scan unless pt is alert and oriented, per Bushra Marquis M.D. 07/14/17, dml No Known Allergies (Unverified Allergy, Unknown, 07/14/17) Past Medical History Hypertension Pancreatic cancer diagnosed 02/24/16 ? COPD . Past Surgical History Vasectomy Port placement in 2016 CT-guided biopsy in 2016 Percutaneous drain in 2016, removed biliary stent placement . Reported Medications Amlodipine (Amlodipine Besylate) 5 Mg Tab 5 Mg PO DAILY Furosemide 1 Tablet (of 20 mg) Oral daily oxycodone (? dose) prn pain . Current Medications Medications (Trade) Dose Ordered Sig/Gabriela Route Start Time Stop Time Status Last Admin (NS Flush) 2 ml UNSCH PRN IV FLUSH 07/11/17 05:15 (NS Flush) 2 ml BID IV FLUSH 07/11/17 09:00 07/11/17 08:19 (Narcan Inj) 0.4 mg UNSCH PRN IV PUSH 07/11/17 05:15 (Tatyana-Colace) 1 tab BID PO 07/11/17 09:00 (Milk Of Magnesia Liq) 30 ml Q12H PRN PO 07/11/17 05:15 (Senokot) 17.2 mg Q12H PRN PO 07/11/17 05:15 (Dulcolax Supp) 10 mg DAILY PRN RECTAL 07/11/17 05:15 (Lactulose Liq) 30 ml QID PO 07/11/17 09:00 07/11/17 09:50 Piperacillin Sod/ Tazobactam Sod 50 ml @ 100 mls/hr Q6H IV 07/11/17 11:00 07/11/17 11:25 Pharmacy Profile Note 0 ml @ 0 mls/hr UNSCH OTHER 07/11/17 05:45 (Norvasc) 5 mg DAILY PO 07/11/17 09:00 07/11/17 09:51 (Lasix) 20 mg DAILY PO 07/11/17 09:00 07/11/17 09:50 (Roxicodone) 5 mg Q6H PRN PO 07/11/17 06:00 (Xifaxan) 550 mg BID PO 07/11/17 09:00 07/11/17 09:51 Vancomycin HCl 1250 mg/Sodium Chloride 262.5 ml @ 250 mls/hr Q18H IV 07/11/17 16:00 Miscellaneous Information SPECIFIC LAB TO BE DRAWN:VANCOMYCIN TROUGH DATE TO... ONCE ONCE .XX 07/13/17 03:45 07/13/17 03:46 Family History Father in his 40s of heart attack, mother living in her 70s with advanced Alzheimer's. 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 He has not been able to work since cancer diagnosis. to his x 18 yrs in October (they have a few times before marriage 18 yrs ago). Pt has 2 children, son and daughter, who are adults that live with them to assist w his care. 3 Yo grandchild also lives w them. . Spiritual/Cultural Factors no particular affiliation, does not feel he would want field recorder visit. (Suzanne Fernandez) Living Will: Never completed Health Care Surrogate: Never completed Durable Power of Bilingual Branch Manager: Never completed Ethical and Legal Issues Pt is unable to participate in decisions due to confusion. Not clear if he will regain capacity. No written HCS or advanced directive. would be appropriate proxy per [place] statutes. . (Suzanne Fernandez) Physical Exam Vital Signs Date Time Temp Pulse Resp B/P (MAP) Pulse Ox O2 Delivery O2 Flow Rate FiO2 07/11/17 11:17 97.4 111 18 179/92 (121) 95 07/11/17 11:00 108 07/11/17 08:06 97.7 102 18 171/92 (118) 95 07/11/17 06:29 175/90 (118) 07/11/17 06:27 99 13 179/95 (123) 96 07/11/17 04:35 96 20 151/77 (101) 96 Room Air 07/11/17 03:38 109 24 175/88 (117) 97 Room Air 07/11/17 03:27 106 22 98 Room Air 07/11/17 02:55 108 24 182/98 (126) 99 Room Air 07/11/17 02:38 97.9 124 18 179/100 (126) 95 Room Air 07/11/17 07/12/17 19:00 07:00 Intake Total 50 ml Balance 50 ml Intake IV Total 50 ml Exam CONSTITUTIONAL/GENERAL: This is a frail, cachectic ill-appearing patient TUBES/LINES/DRAINS: Port accessed right subclavian SKIN: +jaundice, + multiple areas scattered Ecchymoses on upper extremities. Dressing over reported skin tear right elbow. Skin warm and dry. HEAD: Atraumatic. Normocephalic.+ Temporal wasting EYES: Pupils 4 mm, sluggish reaction to light. Extraocular motions intact. + scleral icterus. No injection or drainage. Fundi not examined. ENT: Nose without bleeding or purulent drainage. Does not open mouth for me to visualize oropharynx.+ Poor dentition NECK: Trachea midline. Supple, nontender. CARDIOVASCULAR: Regular rate and rhythm without murmur. No JVD. Peripheral pulses symmetric. RESPIRATORY/CHEST: Symmetric, unlabored respirations. On room air. Clear to auscultation. Breath sounds equal bilaterally. GASTROINTESTINAL: Abdomen firm, tender with exam, +distended. limited palpation secondary to grimacing/pain.+ Ascites. Bowel sounds hypoactive. GENITOURINARY: Without palpable bladder distension. MUSCULOSKELETAL: Extremities without clubbing, cyanosis. + 1 Edema to lower legs . No joint tenderness or effusion noted. LYMPHATICS: No palpable cervical or supraclavicular adenopathy. NEUROLOGICAL: Awake and alert. He does not verbalize for me. Appears confused. Intermittently follows simple commands. Observe to move all 4 extremities moving self around in bed --restless. PSYCHIATRIC: Restless at times. No apparent hallucinations or other psychotic thought process. (Suzanne Fernandez) Diagnostic Tests Laboratory Laboratory Tests Test 07/11/17 03:15 07/11/17 05:15 07/11/17 08:19 07/11/17 11:45 Prothrombin Time 39.5 SEC (9.8-11.6) Prothromb Time International Ratio 3.9 RATIO Activated Partial Thromboplast Time 50.1 SEC (24.3-30.1) Blood Urea Nitrogen 37 MG/DL (7-18) Creatinine 1.23 MG/DL (0.60-1.30) Random Glucose 101 MG/DL (74-106) Total Protein 7.4 GM/DL (6.4-8.2) Albumin 2.1 GM/DL (3.4-5.0) Calcium Level 8.0 MG/DL (8.5-10.1) Alkaline Phosphatase 184 U/L (45-117) Aspartate Amino Transf (AST/SGOT) 91 U/L (15-37) Alanine Aminotransferase (ALT/SGPT) 47 U/L (12-78) Total Bilirubin 21.5 MG/DL (0.2-1.0) Sodium Level 134 MEQ/L (136-145) Potassium Level 4.0 MEQ/L (3.5-5.1) Chloride Level 99 MEQ/L (98-107) Carbon Dioxide Level 25.9 MEQ/L (21.0-32.0) Anion Gap 9 MEQ/L (5-15) Estimat Glomerular Filtration Rate 62 ML/MIN (>89) Lactic Acid Level 6.3 mmol/L (0.4-2.0) 3.8 mmol/L (0.4-2.0) 5.2 mmol/L (0.4-2.0) Ammonia 91 MCMOL/L (11-32) Lipase 46 U/L (73-393) White Blood Count 7.8 TH/MM3 (4.0-11.0) Red Blood Count 3.80 MIL/MM3 (4.50-5.90) Hemoglobin 13.1 GM/DL (13.0-17.0) Hematocrit 36.7 % (39.0-51.0) Mean Corpuscular Volume 96.7 FL (80.0-100.0) Mean Corpuscular Hemoglobin 34.4 PG (27.0-34.0) Mean Corpuscular Hemoglobin Concent 35.6 % (32.0-36.0) Red Cell Distribution Width 17.4 % (11.6-17.2) Platelet Count 83 TH/MM3 (150-450) Mean Platelet Volume 7.7 FL (7.0-11.0) Neutrophils (%) (Auto) 80.3 % (16.0-70.0) Lymphocytes (%) (Auto) 11.7 % (9.0-44.0) Monocytes (%) (Auto) 7.1 % (0.0-8.0) Eosinophils (%) (Auto) 0.6 % (0.0-4.0) Basophils (%) (Auto) 0.3 % (0.0-2.0) Neutrophils # (Auto) 6.2 TH/MM3 (1.8-7.7) Lymphocytes # (Auto) 0.9 TH/MM3 (1.0-4.8) Monocytes # (Auto) 0.6 TH/MM3 (0-0.9) Eosinophils # (Auto) 0.0 TH/MM3 (0-0.4) Basophils # (Auto) 0.0 TH/MM3 (0-0.2) CBC Comment AUTO DIFF Differential Total Cells Counted 100 Neutrophils % (Manual) 66 % (16-70) Band Neutrophils % 18 % (0-6) Lymphocytes % 12 % (9-44) Monocytes % 3 % (0-8) Eosinophils % 1 % (0-4) Neutrophils # (Manual) 6.6 TH/MM3 (1.8-7.7) Differential Comment FINAL DIFF MANUAL Atypical Lymphocytes % (0-0) Toxic Vacuolation PRESENT (NONE SEEN) Platelet Estimate LOW (NORMAL) Platelet Morphology Comment NORMAL (NORMAL) Basophilic Stippling FAINT (NORMAL) (Suzanne Fernandez) Result Diagram: 07/11/17 0515 07/11/17 0315 Microbiology Microbiology Date/Time Source Procedure Growth Status 07/11/17 03:15 Blood Peripheral Aerobic Blood Culture Pending Received 07/11/17 03:15 Blood Peripheral Anaerobic Blood Culture Pending Received 07/11/17 03:10 Blood Peripheral Aerobic Blood Culture Pending Received 07/11/17 03:10 Blood Peripheral Anaerobic Blood Culture Pending Received Imaging Last Impressions Gall Bladder Ultrasound 07/11/17 0424 Signed Impressions: Service Date/Time: Tuesday, July 11, 2017 07:54 - CONCLUSION: 1. There is diffuse abdominal ascites. 2. The liver appears quite small and heterogeneous in echotexture consistent with cirrhosis. The patient has known pancreatic cancer with several small hepatic lesions. These were not seen by the ultrasound. I do not see evidence of intrahepatic biliary ductal dilation. The patient has a known biliary stent in place. 3. There is minimal sludge in the dependent portion the gallbladder. There is gallbladder wall thickening however, this is not an unexpected finding with the presence of ascites. Johnathan Marquis MD Head CT 07/11/17300 Signed Impressions: Service Date/Time: Tuesday, July 11, 2017 03:23 - CONCLUSION: No acute disease. Saad Lyons Jr., MD Chest X-Ray 07/11/17300 Signed Impressions: Service Date/Time: Tuesday, July 11, 2017 03:16 - CONCLUSION: Blunting of the right costophrenic angle I either related to a small effusion or pleural scarring. Otherwise, no infiltrates. Saad Lyons Jr., MD (Suzanne Fernandez) Patient/Family Conference Present at Family Conference: Family Conference Time (mins): 40 (minutes) Family Conference Location: Bedside Issues Discussed: Met with at bedside, discussion included: * Palliative care role, purpose, approach * Additional medical, psychosocial, and spiritual history * Patients general health, functional status, and cognitive changes in the months leading up to the current hospitalization * Patient/family understanding of the current medical problems * Patient/family understanding of prognosis-review of underlying diagnoses of pancreatic cancer as well as patient trajectory over the past 1 year * Patients goals of care as best understood from advance directives and/or conversations and/or values * Current medical treatment options and benefits/burdens of those options-- review of medical treatments in place, GI evaluation, oncology consultation pending * Legal decision makers per [place] statutes; patient with no advanced directive * Review of CODE STATUS and what resuscitation entails-benefits/burdens-she indicates she did discuss this with the ER physician and she is struggling to not provide interventions in case something is treatable or reversible he would remain full code for now though she is going to consider this further in the coming days * Questions answered to the best of my ability * Palliative care contact information provided Patient appears overwhelmed at times. Indicates she is slept about 3 hours in the past 2 days, due to caring for him. She details a general decline over the past many months : Decrease in patient's weight, eating, strength etc. Over the past few days significant confusion, almost no oral intake (taking fluids occasionally), and episode of emesis when she gave him a pain pill. Gently explore with her treatment course over the past 1 year as per review of EMR. She indicates last follow-up with Dr. Tan indicated patient was stable and seemed to be doing okay they were hopeful about follow-up planned for next week to continue Keytruda. She also acknowledges that she understood some point patient disease would not respond and that his condition would be determined although she was hopeful to get more time with ongoing treatments. Gently explore current acute issues as identified in workup, and that GI, oncology consultations are still pending though at some point inpatient disease process he may become too ill , and too debilitated to continue with ongoing treatments and at that time he may only have the option for comfort measures. She will await oncology, GI input; for now goals are aggressive though she is open to ongoing conversations as clinical course evolves. 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 He has not been able to work since cancer diagnosis. to his x 18 yrs in October (they have a few times before marriage 18 yrs ago). Pt has 2 children, son and daughter, who are adults that live with them to assist w his care. 3 Yo grandchild also lives w them. Spiritual: No particular scientology affiliation feels he would not want field recorder visits Legal:Pt is unable to participate in decisions due to confusion. Not clear if he will regain capacity. No written HCS or advanced directive. would be appropriate proxy [place] statutes. Ethical issues impacting care: Important Contacts Kaia Navarro [phone] . Prognosis This patient was admitted for weakness, nausea vomiting, confusion and decreased oral intake. He has known history of metastatic pancreatic cancer diagnoses February 2016. He has had disease progression, has not tolerated chemotherapy, is status post 1 course of Keytruda 2-3 weeks ago. He has had significant weight loss, is now having significant liver dysfunction which is concerning to be secondary to disease process. He may not be a candidate for further aggressive cancer treatment. Appropriate for hospice if goals are compatible. . Plan * Legal decision maker: Pt is unable to participate in decisions due to confusion. Not clear if he will regain capacity. No written HCS or advanced directive. would be appropriate proxy per [place] statutes. * Goals: is hopeful patient acute issues can be stabilized and he can return home to resume treatment for his underlying cancer. She understands treatment is palliative in nature though she was hopeful he would get more time with this. And ongoing conversation regarding goals as condition/course evolves. * CODE STATUS: full code SYMPTOMS: --weakness - deconditioning, debilitated, progressive weight loss since initial cancer diagnosis. PT/OT ordered, patient chronically debilitated not likely to restore to prior levels of function and strength --Encephalopathy- hepatic,? Sepsis, on rifaximin, lactulose, ammonia 91, lactic acid 6, at times with episodes of confusion in the home setting primarily with hepatic dysfunction episodes or with pain medication occasionally --n/v/malnutrition- poor oral intake for the past few days taking only sips of fluids. One episode of emesis prior to admission following administration of pain medication. Prior that progressive weight loss over the past many months, and very little oral intake due to decreased appetite not feeling hungry. --Abdominal pain-unable to rate currently, describes ongoing abdominal pain and discomfort which worsens with ascites; some slight relief with use of prn oxycodone outpatient and paracentesis. Cautious use of opioids given altered mental status and risk for decline; has been ordered for oxycodone 5 mg every 6 hours prn-- monitor requirements/effectiveness Palliative care will continue to follow during hospital course as condition evolves, to assist patient/decision-maker with understanding of medical conditions, weighing benefits/burdens of treatment options, for clarification of goals of treatment. Additionally will assist with any symptoms of palliative concern (Suzanne Fernandez) Time Spent Total Floor Time (mins): 60 (Chart review, PE, discussion with , discussion with nursing) (Suzanne Fernadnez) Thank you for the opportunity to participate in the care of Mr. Navarro. (Suzanne Fernandez) Attestation To help prompt me to consider important information that might be impacting today's encounter and assessment, information from prior notes written by myself or my colleagues may have been "brought forward" into today's note. My signature on this note, however, is an attestation that I personally performed the exam, history, and/or decision-making noted today, and, unless otherwise indicated, the interactions with patient, family, and staff as well as the review of records all occurred today. I also attest that the listed assessment and stated plan reflect my best clinical judgment today based on the combination of historical information, prior notes, and today's exam/ interactions. When time spent is documented, it refers only to time spent today by the signer, or if indicated, combined time spent today by collaborating physician/nurse practitioner. (Suzanne Fernandez) Collaborating MD Comments Chart reviewed. Case discussed with palliative care ELECTRON BEAM WELDER. Above ELECTRON BEAM WELDER note reviewed and I concur. . (Eladio Freeman MD) Suzanne Fernandez Jul 11, 2017 14:01 Eladio Freeman MD Jul 18, 2017 14:49
[2017-07-11 14:50] LABS: HEMATOCRIT 35.8 % (39.0-51.0); HEMOGLOBIN 12.9 GM/DL (13.0-17.0); MEAN CORPUSCULAR HEMOGLOBIN 34.6 PG (27.0-34.0); MEAN PLATELET VOLUME 8.2 FL (7.0-11.0); PLATELET COUNT 140 TH/MM3 (150-450); RED BLOOD COUNT 3.73 MIL/MM3 (4.50-5.90); RED CELL DISTRIBUTION WIDTH 17.8 % (11.6-17.2); WHITE BLOOD COUNT 12.4 TH/MM3 (4.0-11.0)
[2017-07-11 14:53] LABS: INTERNATIONAL NORMALIZED RATIO 4.2 RATIO; PROTHROMBIN TIME - PATIENT 42.2 SEC (9.8-11.6)
[2017-07-11] MEDS: VANCOMYCIN INJ 1,250 MG in SODIUM CHLOR 0.9% 250 ML INJ 250 ML IV SCH (15:19)
[2017-07-11 15:26] LABS: TOTAL PROTEIN 7.1 GM/DL (6.4-8.2)
--- NOTE | 2017-07-11 15:39 | PD.CONS ---
HPI History of Present Illness This is a unfortunate 51 year old who was diagnosed with pancreatitis and has been followed by Dr. [facility] oncology. According to the record patient has been receiving chemotherapy. Currently patient is unable to give any pertinent history data, occasional groan and grimace noted, large taut abdomen noted with diffuse pain with light palpation. Currently patient is resting in the bed, unknown for any nausea or vomiting, but positive for cathartic stature. . According to the record patient became altered with increased jaundice and scleral and icterus on 07-08-17. Initial bilirubin on admission was 21.5, ammonia level 91, lactic acid level 6.3. INR 4.2, elevated in the last 24 hours. Patient is currently icteric skin, gallbladder ultrasound shows diffuse ascites liver cirrhosis with lesions, biliary stent in place. He is in a very weakened state, and appears unable to communicate. Most of his information is being obtained from the record PFSH Past Medical History Hypertension Pancreatic cancer diagnosed 02/24/16 Past Surgical History Vasectomy Port placement in 2015 CT-guided biopsy in 2015 Percutaneous drain in 2059 Coded Allergies: No Known Allergies (Unverified , 02/24/16) Medications Administered Medications Medications (Trade) Dose Ordered Sig/Gabriela Route PRN Reason Start Time Stop Time Status Last Admin Dose Admin Sodium Chloride (NS Flush) 2 ml BID IV FLUSH 07/11/17 09:00 07/11/17 08:19 Lactulose (Lactulose Liq) 30 ml QID PO 07/11/17 09:00 07/11/17 14:00 Piperacillin Sod/ Tazobactam Sod 50 ml @ 100 mls/hr Q6H IV 07/11/17 11:00 07/11/17 11:25 Amlodipine Besylate (Norvasc) 5 mg DAILY PO 07/11/17 09:00 07/11/17 09:51 Furosemide (Lasix) 20 mg DAILY PO 07/11/17 09:00 07/11/17 09:50 Rifaximin (Xifaxan) 550 mg BID PO 07/11/17 09:00 07/11/17 09:51 Vancomycin HCl 1250 mg/Sodium Chloride 262.5 ml @ 250 mls/hr Q18H IV 07/11/17 16:00 07/11/17 15:19 Last Impressions Gall Bladder Ultrasound 07/11/17 0456 Signed Impressions: Service Date/Time: Tuesday, July 11, 2017 07:54 - CONCLUSION: 1. There is diffuse abdominal ascites. 2. The liver appears quite small and heterogeneous in echotexture consistent with cirrhosis. The patient has known pancreatic cancer with several small hepatic lesions. These were not seen by the ultrasound. I do not see evidence of intrahepatic biliary ductal dilation. The patient has a known biliary stent in place. 3. There is minimal sludge in the dependent portion the gallbladder. There is gallbladder wall thickening however, this is not an unexpected finding with the presence of ascites. Johnathan Marquis MD Head CT 07/11/17300 Signed Impressions: Service Date/Time: Tuesday, July 11, 2017 03:23 - CONCLUSION: No acute disease. Saad Lyons Jr., MD Chest X-Ray 07/11/17300 Signed Impressions: Service Date/Time: Tuesday, July 11, 2017 03:16 - CONCLUSION: Blunting of the right costophrenic angle I either related to a small effusion or pleural scarring. Otherwise, no infiltrates. Saad Lyons Jr., MD Family History Father in his 40s of heart attack, mother living in her 70s with Alzheimer' s. Social History Per , the patient does not drink alcohol, smoke cigarettes or take illicit drugs GI Exam Vitals I&O Vital Signs Date Time Temp Pulse Resp B/P (MAP) Pulse Ox O2 Delivery O2 Flow Rate FiO2 07/11/17 15:15 96.4 109 18 171/93 (119) 97 07/11/17 11:17 97.4 111 18 179/92 (121) 95 07/11/17 11:00 108 07/11/17 08:06 97.7 102 18 171/92 (118) 95 07/11/17 06:29 175/90 (118) 07/11/17 06:27 99 13 179/95 (123) 96 07/11/17 04:35 96 20 151/77 (101) 96 Room Air 07/11/17 03:38 109 24 175/88 (117) 97 Room Air 07/11/17 03:27 106 22 98 Room Air 07/11/17 02:55 108 24 182/98 (126) 99 Room Air 07/11/17 02:38 97.9 124 18 179/100 (126) 95 Room Air I/O 07/10/17 07/10/17 07/10/17 07/11/17 07/11/17 07/11/17 07:00 15:00 23:00 07:00 15:00 23:00 Intake Total 50 ml Balance 50 ml Intake IV Total 50 ml Imaging Last Impressions Gall Bladder Ultrasound 07/11/17 0456 Signed Impressions: Service Date/Time: Tuesday, July 11, 2017 07:54 - CONCLUSION: 1. There is diffuse abdominal ascites. 2. The liver appears quite small and heterogeneous in echotexture consistent with cirrhosis. The patient has known pancreatic cancer with several small hepatic lesions. These were not seen by the ultrasound. I do not see evidence of intrahepatic biliary ductal dilation. The patient has a known biliary stent in place. 3. There is minimal sludge in the dependent portion the gallbladder. There is gallbladder wall thickening however, this is not an unexpected finding with the presence of ascites. Johnathan Marquis MD Head CT 07/11/17 0301 Signed Impressions: Service Date/Time: Tuesday, July 11, 2017 03:23 - CONCLUSION: No acute disease. Saad Lyons Jr., MD Chest X-Ray 07/11/17300 Signed Impressions: Service Date/Time: Tuesday, July 11, 2017 03:16 - CONCLUSION: Blunting of the right costophrenic angle I either related to a small effusion or pleural scarring. Otherwise, no infiltrates. Saad Lyons Jr., MD Laboratory Test 07/11/17 03:15 07/11/17 05:15 07/11/17 08:19 07/11/17 11:45 Prothrombin Time 39.5 SEC Prothromb Time International Ratio 3.9 RATIO Activated Partial Thromboplast Time 50.1 SEC Blood Urea Nitrogen 37 MG/DL Creatinine 1.23 MG/DL Random Glucose 101 MG/DL Total Protein 7.4 GM/DL Albumin 2.1 GM/DL Calcium Level 8.0 MG/DL Alkaline Phosphatase 184 U/L Aspartate Amino Transf (AST/SGOT) 91 U/L Alanine Aminotransferase (ALT/SGPT) 47 U/L Total Bilirubin 21.5 MG/DL Sodium Level 134 MEQ/L Potassium Level 4.0 MEQ/L Chloride Level 99 MEQ/L Carbon Dioxide Level 25.9 MEQ/L Anion Gap 9 MEQ/L Estimat Glomerular Filtration Rate 62 ML/MIN Lactic Acid Level 6.3 mmol/L 3.8 mmol/L 5.2 mmol/L Ammonia 91 MCMOL/L Lipase 46 U/L White Blood Count 7.8 TH/MM3 Red Blood Count 3.80 MIL/MM3 Hemoglobin 13.1 GM/DL Hematocrit 36.7 % Mean Corpuscular Volume 96.7 FL Mean Corpuscular Hemoglobin 34.4 PG Mean Corpuscular Hemoglobin Concent 35.6 % Red Cell Distribution Width 17.4 % Platelet Count 83 TH/MM3 Mean Platelet Volume 7.7 FL Neutrophils (%) (Auto) 80.3 % Lymphocytes (%) (Auto) 11.7 % Monocytes (%) (Auto) 7.1 % Eosinophils (%) (Auto) 0.6 % Basophils (%) (Auto) 0.3 % Neutrophils # (Auto) 6.2 TH/MM3 Lymphocytes # (Auto) 0.9 TH/MM3 Monocytes # (Auto) 0.6 TH/MM3 Eosinophils # (Auto) 0.0 TH/MM3 Basophils # (Auto) 0.0 TH/MM3 CBC Comment AUTO DIFF Differential Total Cells Counted 100 Neutrophils % (Manual) 66 % Band Neutrophils % 18 % Lymphocytes % 12 % Monocytes % 3 % Eosinophils % 1 % Neutrophils # (Manual) 6.6 TH/MM3 Differential Comment FINAL DIFF MANUAL Atypical Lymphocytes % Toxic Vacuolation PRESENT Platelet Estimate LOW Platelet Morphology Comment NORMAL Basophilic Stippling FAINT Test 07/11/17 14:30 White Blood Count 12.4 TH/MM3 Red Blood Count 3.73 MIL/MM3 Hemoglobin 12.9 GM/DL Hematocrit 35.8 % Mean Corpuscular Volume 96.0 FL Mean Corpuscular Hemoglobin 34.6 PG Mean Corpuscular Hemoglobin Concent 36.0 % Red Cell Distribution Width 17.8 % Platelet Count 140 TH/MM3 Mean Platelet Volume 8.2 FL Prothrombin Time 42.2 SEC Prothromb Time International Ratio 4.2 RATIO Activated Partial Thromboplast Time 49.9 SEC Lactate Dehydrogenase 271 U/L Total Protein 7.1 GM/DL Date/Time Source Procedure Growth Status 07/11/17 03:15 Blood Peripheral Aerobic Blood Culture Pending Received 07/11/17 03:15 Blood Peripheral Anaerobic Blood Culture Pending Received Physical Examination HEENT: Pupils round and reactive to light; normocephalic; atraumatic; positive jaundice. Poor oral, dental caries NECK: Neck is supple, no JVD, no lymphadenopathy. CHEST: Chest is clear to auscultation and percussion. CARDIAC: Regular rate and rhythm with no murmur gallop or rubs. ABDOMEN: Soft, nondistended, nontender; no hepatosplenomegaly; bowel sounds are present in all four quadrants. EXTREMITIES: No clubbing, cyanosis, or edema. SKIN: Thin, cathartic no rash; positive jaundice. HEALTH ACTUARY: Altered mental status, non-conversational Assessment and Plan Assessment: (1) Jaundice ICD Codes: R17 - Unspecified jaundice Status: Acute Plan Diet nothing by mouth for now, patient is not safe to trial any food or liquids now due to his altered mental status Monitor for any acute bleeding, very high risk with elevated INR according to the record ultrasound guided paracentesis per IR has been ordered MRCP without contrast after paracentesis if patient is clinically stable, patient has biliary stent, evaluate for any possible obstruction Will reevaluate patient after paracentesis completed, any further procedures TBA Labs to monitor which includes LFTs, alkaline phosphatase and bilirubin Palliative care is involved, which is an appropriate recommendation for this unfortunate gentleman PPI IV Plan of care will be based on symptom management and toleration of any further testing. Patient was examined by myself and Dr. Carpenter, note was done on his behalf Mary Szymanski Jul 11, 2017 15:39
[2017-07-11] MEDS ORDERED: VANCOMYCIN INJ 1,000 MG in SODIUM CHLOR 0.9% 250 ML INJ 250 ML IV SCH (16:30)
[2017-07-11] MEDS: PANTOPRAZOLE SODIUM 40 MG VIAL IV PUSH SCH (16:36)
[2017-07-11] MEDS ORDERED: cloNIDine HCL 0.1 MG TAB PO PRN (17:30)
[2017-07-11] MEDS ORDERED: PHYTONADIONE 10 MG/ML VIAL SQ ONE (19:15)
[2017-07-11] MEDS ORDERED: LORazepam 2 MG/ML VIAL IV PUSH ONE (19:15)
--- NOTE | 2017-07-11 20:10 | MB ---
cc: AMELIA BROCK STEVEN DATE OF CONSULTATION: 07/11/2017 DATE OF : [birth year][address] Rosales CHIEF COMPLAINT Dr. Rosales requested consultation for Mr. Navarro regarding jaundice associated with altered mental status. HISTORY OF PRESENT ILLNESS Mr. Navarro is a 51-year-old man well-known patient with metastatic unresectable pancreatic cancer. He has progressed on multiple lines of chemotherapy including Abraxane and gemcitabine. Most recently he has had progression on Folfirinox. His tumor markers are extremely high. His last cycle of chemotherapy was complicated by prolonged cytopenias unable to tolerate more cytotoxic chemotherapy. Since his progression, he has developed complications of ascites status post thoracentesis without significant alleviation of symptoms. He had lower extremity edema. He was on diuretic therapy. Recently he was approved for Keytruda, check point inhibitor. He was treated with Keytruda prior to his last visit on June 28, 2017. He tolerated the Keytruda well. We discussed toxicity associated with the check point inhibitor. He was supposed to follow up after the holidays. His reports that he was becoming jaundice two days prior to his presentation. Unfortunately he did not want to come into the emergency room. Finally he was confused and his was able to bring him in. He was seen in the emergency room by Dr. Edin Blanc. He has confusion, generalized weakness. He had a decrease in appetite. He has had intermittent vomiting the last two days which was new. He is pending ERCP evaluation. Gallbladder ultrasound shows diffuse ascites. Liver is small consistent with cirrhosis. He has known pancreatic cancer with hepatic metastatic disease. He has bony metastatic disease. He has solid wall stent in place. His last bilirubin on his last followup was 1.8. His bilirubin on admission was 21.5. He is overtly confused. He is nonverbal. He seems to have some recognition and follows simple commands. LABORATORY DATA: His labs show a hemoglobin of 12.9, platelet count 140,000. His lactic acid is elevated. His ammonia is 91, LDH 271. The liver functions show an AST of 91, alkaline phosphatase 184. His last tumor marker was up to 24,000 after the Keytruda. PAST MEDICAL HISTORY 1. Unresectable pancreatic cancer. 2. Hypertension. 3. Ascites. 4. Liver cirrhosis. 5. Pancytopenia. 6. COPD. PAST SURGICAL HISTORY: 1. Vasectomy 2. Port placement. 3. CT guided biopsy. 4. Percutaneous drain. 5. ERCP. 6. Metal stent placement. FAMILY HISTORY: No family history of cancer. SOCIAL HISTORY He is , lives with his . Denies any tobacco, alcohol or illicit drug use. 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 ALLERGIES NO KNOWN DRUG ALLERGIES. CURRENT MEDICATIONS 1. Clonidine p.r.n. 2. Vancomycin. 3. Protonix. 4. Piperacillin tazobactam. 5. Tatyana-Colace 6. Lactulose. 7. Norvasc. 8. Cytoxan. PHYSICAL EXAMINATION: VITAL SIGNS: Temperature 96.4, heart rate 109, respiratory rate 18, blood pressure 171/93, saturation 97%. GENERAL: Mr. Navarro is a cachectic appearing man who is awake, alert, nonverbal, follows simple commands. HEENT: His pupils are round and reactive. Sclerae is icteric. He is overtly jaundiced, bitemporal wasting. Oropharynx is dry, poor dentition. NECK: Supple. LUNGS: Clear to auscultation. CARDIOVASCULAR: Reveals tachycardia. ABDOMEN: Distension, fluid wave is noted. Nontender. LOWER EXTREMITIES: No edema. He moves all four extremities spontaneously. Labs consistent with a normocytic anemia. Hemoglobin 12.9, platelet count 140. White blood cell count is elevated. ASSESSMENT AND PLAN: Mr. Navarro is a 51 year-old man with unresectable metastatic pancreatic cancer who has progressed on multiple lines of chemotherapy. He is currently on a check point inhibitor. He presents with acute jaundice. The onset seems to have been about two days. He has had a rising bilirubin since. His metal stent is managed by a legal job titles who do not admit to [place]. He is pending consultation with gastroenterology. He appears to have an obstruction, hopefully on his metal stent. We are obtaining MRCP to identify a correctable lesion. I defer to gastroenterology, if a correctable lesion is identified to correct it. We are hopeful for any reversible process that may decrease his bilirubin. I discussed honestly with his if the increase in bilirubin is due to his liver metastatic disease, the treatment has been palliative all along. At this point he is not able to make decisions. Palliative care has been consulted and is talking with the family. Mrs. Navarro would like to remain hopeful for the time being. We discussed supportive treatment including supportive fluid. He is clinically dry. He is given lorazepam for his MRCP. He is a fall precaution. He may need a one-to-one sitter pending on his progress overnight. This was discussed with the patient's nurses. He is pending diagnostic paracentesis and therapeutic paracentesis. Vitamin K is administered. He may need FFP in the morning to correct the PT/PTT prolongation. Mixing study has been requested. and Mrs. Navarro's questions were answered to their satisfaction. Mrs. Navarro was called over the phone to discuss the above. We will confer with gastroenterology for reversible lesion. In the meantime supportive treatment lactulose is in place. MD JELENA Aquino/SYEDA /7:04 PM /7:17 PM
[2017-07-11 20:51] LABS: DIRECT BILIRUBIN ADULT 14.2 MG/DL (0.0-0.2); INDIRECT BILIRUBIN 6.2 MG/DL (0.0-0.8); TOTAL BILIRUBIN ADULT 20.4 MG/DL (0.2-1.0)
[2017-07-11] MEDS: DEXT 5%-NACL 0.9% 1000 ML INJ 1,000 ML IV SCH (21:25)
[2017-07-11 23:02] LABS: AMORPHOUS SEDIMENT, URINE RARE; BACTERIA, URINE RARE /hpf; BILIRUBIN, URINE LARGE (NEG); BLOOD, URINE SMALL (NEG); GLUCOSE,URINE NEG (NEG); HYALINE CAST, URINE 6 /lpf (RARE); KETONE, URINE 10 mg/dL (NEG); MUCUS URINE FEW /lpf (OCC); NITRITE,URINE NEG (NEG); URINE LEUKOCYTE ESTERASE NEG (NEG)
[2017-07-11 23:03] LABS: URINE COLOR DARK-BROWN (YELLW/STRAW)
[2017-07-12] VITALS (7 sets, daily range): BP systolic 141–165; BP diastolic 76–87; PULSE 92–104; RESP 12–22; TEMP 97.1–98.7; O2SAT 95–97
[2017-07-12 04:19] LABS: AUTOMATED NEUTROPHIL # 10.7 TH/MM3 (1.8-7.7); BASOPHIL % 0.3 % (0.0-2.0); EOSINOPHIL % 0.3 % (0.0-4.0); HEMATOCRIT 34.2 % (39.0-51.0); HEMOGLOBIN 11.7 GM/DL (13.0-17.0); LYMPH % 10.3 % (9.0-44.0); LYMPHOCYTE # 1.3 TH/MM3 (1.0-4.8); MEAN CELL VOLUME 96.4 FL (80.0-100.0); MEAN CORPUSCULAR HEMOGLOBIN 33.1 PG (27.0-34.0); MEAN CORPUSCULAR HGB CONC 34.3 % (32.0-36.0); MEAN PLATELET VOLUME 7.4 FL (7.0-11.0); MONO % 6.5 % (0.0-8.0); MONOCYTE # 0.9 TH/MM3 (0-0.9); NEUT % 82.6 % (16.0-70.0); PLATELET COUNT 105 TH/MM3 (150-450); RED BLOOD COUNT 3.54 MIL/MM3 (4.50-5.90); RED CELL DISTRIBUTION WIDTH 17.4 % (11.6-17.2)
[2017-07-12] MEDS: PIPERACIL-TAZO 3.375 GM PREMIX 50 ML IV SCH ×4 (04:24→23:45)
[2017-07-12 04:35] LABS: INTERNATIONAL NORMALIZED RATIO 4.8 RATIO; PROTHROMBIN TIME - PATIENT 48.4 SEC (9.8-11.6)
[2017-07-12 04:39] LABS: ALBUMIN 1.7 GM/DL (3.4-5.0); AMYLASE 25 U/L (25-115); AST (GOT) 103 U/L (15-37); BICARBONATE 22.8 MEQ/L (21.0-32.0); BLOOD UREA NITROGEN 41 MG/DL (7-18); CALCIUM 7.6 MG/DL (8.5-10.1); CHLORIDE 104 MEQ/L (98-107); CREATININE 1.31 MG/DL (0.60-1.30); GLOMERULAR FILTRATION RATE 57 ML/MIN (>89); GLUCOSE,RANDOM 117 MG/DL (74-106); LIPASE 48 U/L (73-393); MAGNESIUM 2.7 MG/DL (1.5-2.5); SODIUM (NA) 137 MEQ/L (136-145)
[2017-07-12 04:40] LABS: ALT (GPT) 46 U/L (12-78)
[2017-07-12 04:48] LABS: ALKALINE PHOSPHATASE 145 U/L (45-117); FREE T4 1.49 NG/DL (0.76-1.46); PHOSPHORUS 1.8 MG/DL (2.5-4.9); TOTAL BILIRUBIN ADULT 18.7 MG/DL (0.2-1.0); TOTAL PROTEIN 6.3 GM/DL (6.4-8.2)
[2017-07-12] MEDS: DOCUSATE SODIUM 50 MG/SENNA 8.6 MG TAB PO SCH ×2 (09:00→21:00)
[2017-07-12] MEDS: LACTULOSE SYRUP 20 GM/30 ML CUP PO SCH ×4 (09:26→21:11)
[2017-07-12] MEDS: VANCOMYCIN INJ 1,250 MG in SODIUM CHLOR 0.9% 250 ML INJ 250 ML IV SCH (09:28)
[2017-07-12] MEDS: SODIUM CHLORIDE 0.9% FLUSH 10 ML FLUSH IV FLUSH SCH ×2 (09:29→21:11)
[2017-07-12] MEDS: RIFAXIMIN 550 MG TAB PO SCH ×2 (09:29→21:10)
[2017-07-12] MEDS: amLODIPine BESYLATE 5 MG TAB PO SCH (09:29)
[2017-07-12 10:07] LABS: APTT 4PT:1NL 31.7 SEC (24.3-30.1); PT 1N:1P 1HR-37C 13.1 SEC (9.8-11.6)
--- NOTE | 2017-07-12 12:24 | HHI.HCPN ---
Reason for visit a. To assist with evaluation and management of symptoms including: weakness , n/v, pain, encephalopathy b. To assist medical decision maker(s) with: better understanding of current medical conditions; weighing benefits/burdens of medical treatment options; making medical treatment decisions. (Suzanne Fernandez) Subjective/Interval History Pt seen to follow up on comfort, goals. stable. WBC up 13. Platelets down trending 105. INR 4.8, further coag studies pending per oncology. Total bili 18.7 (20.4 yesterday) Ammonia 57. BC + gram neg rods. ERCP ordered for today per GI to further investigate for possible obstruction. s/p oncology evaluation, pt known to Dr Tan. Pt w known mets to liver, bone. Concern that current acute illness 2/2 to hepatic involvement. She notes d/w , goals remain aggressive at this time. Pt seen in room, sleeping soundly, no visitors present. has gone home to rest (she yesterday reported poor sleep to me 2/2 caring for the pt). He appears very jaundiced, ill. He does not stir to my exam. I did not vigorously attempt to arouse him as he is reported to require Ativan yesterday evening for agitation, he has been confused and he currently appears very calm and restful. Discussed with covering nurse, left my card with contact number for when she returns to provide her update. . (Suzanne Fernandez) Advance Directives Living Will: Never completed Health Care Surrogate: Never completed Durable Power of Turn Out Worker: Never completed (Suzanne Fernandez) Objective Vital Signs Date Time Temp Pulse Resp B/P (MAP) Pulse Ox O2 Delivery O2 Flow Rate FiO2 07/12/17 11:15 147/84 (105) 07/12/17 11:13 97.8 96 18 165/81 (109) 96 07/12/17 09:24 97.4 102 22 141/77 (98) 96 07/12/17 04:28 97.5 104 18 159/79 (105) 95 07/11/17 23:53 97.1 103 16 151/72 (98) 95 07/11/17 20:45 96.0 108 14 148/83 (104) 94 07/11/17 20:30 103 07/11/17 15:15 96.4 109 18 171/93 (119) 97 Intake & Output 07/12/17 07/12/17 07:00 19:00 Intake Total 630 ml Output Total 500 ml Balance 130 ml Intake Oral 50 ml IV Total 580 ml Output Urine Total 500 ml Physical Exam CONSTITUTIONAL/GENERAL: This is a frail, cachectic ill-appearing patient, lethargic/sleeping TUBES/LINES/DRAINS: Port accessed right subclavian SKIN: +jaundice, + multiple areas scattered Ecchymoses on upper extremities. Dressing over reported skin tear right elbow. Skin warm and dry. CARDIOVASCULAR: Regular rate and rhythm without murmur. Peripheral pulses symmetric. RESPIRATORY/CHEST: Symmetric, unlabored respirations. On room air. Clear to auscultation. Breath sounds equal bilaterally. GASTROINTESTINAL: Abdomen firm, tender with exam, +distended. Limited palpation secondary to distention+ Ascites. Bowel sounds hypoactive. GENITOURINARY: Without palpable bladder distension. MUSCULOSKELETAL: Extremities without clubbing, cyanosis. + 1 Edema to lower legs . No joint tenderness or effusion noted. NEUROLOGICAL: Sleeping soundly at time of my exam. Does not stir to my touch or soft verbal. He appears comfortable in no distress. PSYCHIATRIC: Sleeping peacefully. No apparent hallucinations or other psychotic thought process. (Suzanne Fernandez) Diagnostic Tests Laboratory Laboratory Tests Test 07/11/17 03:15 07/11/17 05:15 07/11/17 08:19 07/11/17 11:45 Prothrombin Time 39.5 SEC (9.8-11.6) Prothromb Time International Ratio 3.9 RATIO Activated Partial Thromboplast Time 50.1 SEC (24.3-30.1) Blood Urea Nitrogen 37 MG/DL (7-18) Creatinine 1.23 MG/DL (0.60-1.30) Random Glucose 101 MG/DL (74-106) Total Protein 7.4 GM/DL (6.4-8.2) Albumin 2.1 GM/DL (3.4-5.0) Calcium Level 8.0 MG/DL (8.5-10.1) Alkaline Phosphatase 184 U/L (45-117) Aspartate Amino Transf (AST/SGOT) 91 U/L (15-37) Alanine Aminotransferase (ALT/SGPT) 47 U/L (12-78) Total Bilirubin 21.5 MG/DL (0.2-1.0) Sodium Level 134 MEQ/L (136-145) Potassium Level 4.0 MEQ/L (3.5-5.1) Chloride Level 99 MEQ/L (98-107) Carbon Dioxide Level 25.9 MEQ/L (21.0-32.0) Anion Gap 9 MEQ/L (5-15) Estimat Glomerular Filtration Rate 62 ML/MIN (>89) Lactic Acid Level 6.3 mmol/L (0.4-2.0) 3.8 mmol/L (0.4-2.0) 5.2 mmol/L (0.4-2.0) Ammonia 91 MCMOL/L (11-32) Lipase 46 U/L (73-393) White Blood Count 7.8 TH/MM3 (4.0-11.0) Red Blood Count 3.80 MIL/MM3 (4.50-5.90) Hemoglobin 13.1 GM/DL (13.0-17.0) Hematocrit 36.7 % (39.0-51.0) Mean Corpuscular Volume 96.7 FL (80.0-100.0) Mean Corpuscular Hemoglobin 34.4 PG (27.0-34.0) Mean Corpuscular Hemoglobin Concent 35.6 % (32.0-36.0) Red Cell Distribution Width 17.4 % (11.6-17.2) Platelet Count 83 TH/MM3 (150-450) Mean Platelet Volume 7.7 FL (7.0-11.0) Neutrophils (%) (Auto) 80.3 % (16.0-70.0) Lymphocytes (%) (Auto) 11.7 % (9.0-44.0) Monocytes (%) (Auto) 7.1 % (0.0-8.0) Eosinophils (%) (Auto) 0.6 % (0.0-4.0) Basophils (%) (Auto) 0.3 % (0.0-2.0) Neutrophils # (Auto) 6.2 TH/MM3 (1.8-7.7) Lymphocytes # (Auto) 0.9 TH/MM3 (1.0-4.8) Monocytes # (Auto) 0.6 TH/MM3 (0-0.9) Eosinophils # (Auto) 0.0 TH/MM3 (0-0.4) Basophils # (Auto) 0.0 TH/MM3 (0-0.2) CBC Comment AUTO DIFF Differential Total Cells Counted 100 Neutrophils % (Manual) 66 % (16-70) Band Neutrophils % 18 % (0-6) Lymphocytes % 12 % (9-44) Monocytes % 3 % (0-8) Eosinophils % 1 % (0-4) Neutrophils # (Manual) 6.6 TH/MM3 (1.8-7.7) Differential Comment FINAL DIFF MANUAL Atypical Lymphocytes % (0-0) Toxic Vacuolation PRESENT (NONE SEEN) Platelet Estimate LOW (NORMAL) Platelet Morphology Comment NORMAL (NORMAL) Basophilic Stippling FAINT (NORMAL) Test 07/11/17 14:30 07/11/17 22:30 07/12/17 03:55 White Blood Count 12.4 TH/MM3 (4.0-11.0) 13.0 TH/MM3 (4.0-11.0) Red Blood Count 3.73 MIL/MM3 (4.50-5.90) 3.54 MIL/MM3 (4.50-5.90) Hemoglobin 12.9 GM/DL (13.0-17.0) 11.7 GM/DL (13.0-17.0) Hematocrit 35.8 % (39.0-51.0) 34.2 % (39.0-51.0) Mean Corpuscular Volume 96.0 FL (80.0-100.0) 96.4 FL (80.0-100.0) Mean Corpuscular Hemoglobin 34.6 PG (27.0-34.0) 33.1 PG (27.0-34.0) Mean Corpuscular Hemoglobin Concent 36.0 % (32.0-36.0) 34.3 % (32.0-36.0) Red Cell Distribution Width 17.8 % (11.6-17.2) 17.4 % (11.6-17.2) Platelet Count 140 TH/MM3 (150-450) 105 TH/MM3 (150-450) Mean Platelet Volume 8.2 FL (7.0-11.0) 7.4 FL (7.0-11.0) Prothrombin Time 42.2 SEC (9.8-11.6) 48.4 SEC (9.8-11.6) Prothromb Time International Ratio 4.2 RATIO 4.8 RATIO Activated Partial Thromboplast Time 49.9 SEC (24.3-30.1) 55.9 SEC (24.3-30.1) Total Bilirubin 20.4 MG/DL (0.2-1.0) 18.7 MG/DL (0.2-1.0) Direct Bilirubin 14.2 MG/DL (0.0-0.2) Indirect Bilirubin 6.2 MG/DL (0.0-0.8) Lactate Dehydrogenase 271 U/L (87-241) Total Protein 7.1 GM/DL (6.4-8.2) 6.3 GM/DL (6.4-8.2) Urine Color DARK-BROWN (YELLW/STRAW) Urine Turbidity HAZY (CLEAR) Urine pH 6.0 (5.0-8.5) Urine Specific [place] 1.025 (1.002-1.035) Urine Protein TRACE mg/dL (NEG-TRACE) Urine Glucose (UA) NEG mg/dL (NEG) Urine Ketones 10 mg/dL (NEG) Urine Occult Blood SMALL (NEG) Urine Nitrite NEG (NEG) Urine Bilirubin LARGE (NEG) Urine Urobilinogen LESS THAN 2.0 MG/DL (LESS Urine Leukocyte Esterase NEG (NEG) Urine RBC 1 /hpf (0-3) Urine WBC 1 /hpf (0-5) Urine Amorphous Sediment RARE Urine Bacteria RARE /hpf (NONE) Urine Hyaline Casts 6 /lpf (RARE) Urine Mucus FEW /lpf (OCC) Microscopic Urinalysis Comment CULT NOT INDICATED Neutrophils (%) (Auto) 82.6 % (16.0-70.0) Lymphocytes (%) (Auto) 10.3 % (9.0-44.0) Monocytes (%) (Auto) 6.5 % (0.0-8.0) Eosinophils (%) (Auto) 0.3 % (0.0-4.0) Basophils (%) (Auto) 0.3 % (0.0-2.0) Neutrophils # (Auto) 10.7 TH/MM3 (1.8-7.7) Lymphocytes # (Auto) 1.3 TH/MM3 (1.0-4.8) Monocytes # (Auto) 0.9 TH/MM3 (0-0.9) Eosinophils # (Auto) 0.0 TH/MM3 (0-0.4) Basophils # (Auto) 0.0 TH/MM3 (0-0.2) CBC Comment DIFF FINAL Differential Comment Prothrombin Time Control 11.0 SEC APTT Control 25.7 SEC Mix PT Normal Plasma Immediate 10.7 SEC Mix PT Normal Plasma 1 Hour 10.9 SEC Mix PT Patient/Normal 1:4 Immediate 11.4 SEC (9.8-11.6) Mix PT Patient/Normal 1:1 Immediate 13.4 SEC (9.8-11.6) Mix PT Patient/Normal 1:1 1 Hr 37c 13.1 SEC (9.8-11.6) Mix PT Patient/Normal 4:1 Immediate 17.4 SEC (9.8-11.6) Mix PT Patient Pre-Incubation 53.5 SEC (9.8-11.6) Mix PTT Normal Plasma Immediate 24.9 SEC (24.3-30.1) Mix PTT Normal Plasma 1 Hour 25.9 SEC Mix PTT Patient/Normal 1:4 Immed 24.5 SEC (24.3-30.1) Mix PTT Patient/Normal 1:1 26.4 SEC (24.3-30.1) Mix PTT Patient/Normal 1:1 1 Hr 37c 29.4 SEC (24.3-30.1) Mix PTT Patient/Normal 4:1 Immed 31.7 SEC (24.3-30.1) Mix PTT Patient Pre-Incubation 54.5 SEC (24.3-30.1) Coagulation Factor Inhibitor Screen Blood Urea Nitrogen 41 MG/DL (7-18) Creatinine 1.31 MG/DL (0.60-1.30) Random Glucose 117 MG/DL (74-106) Albumin 1.7 GM/DL (3.4-5.0) Calcium Level 7.6 MG/DL (8.5-10.1) Phosphorus Level 1.8 MG/DL (2.5-4.9) Magnesium Level 2.7 MG/DL (1.5-2.5) Alkaline Phosphatase 145 U/L (45-117) Aspartate Amino Transf (AST/SGOT) 103 U/L (15-37) Alanine Aminotransferase (ALT/SGPT) 46 U/L (12-78) Sodium Level 137 MEQ/L (136-145) Potassium Level 3.9 MEQ/L (3.5-5.1) Chloride Level 104 MEQ/L (98-107) Carbon Dioxide Level 22.8 MEQ/L (21.0-32.0) Anion Gap 10 MEQ/L (5-15) Estimat Glomerular Filtration Rate 57 ML/MIN (>89) Ammonia 57 MCMOL/L (11-32) Amylase Level 25 U/L (25-115) Lipase 48 U/L (73-393) Free Thyroxine 1.49 NG/DL (0.76-1.46) Thyroid Stimulating Hormone 3rd Gen 0.148 uIU/ML (0.358-3.740) (Suzanne Fernandez) Result Diagram: 07/12/1735407/12/17354 Microbiology Microbiology Date/Time Source Procedure Growth Status 07/11/17 03:15 Blood Peripheral Aerobic Blood Culture - Preliminary NO GROWTH IN 1 DAY Resulted 07/11/17 03:15 Anaerobic Blood Culture - Preliminary Gram Negative Damaso Resulted 07/11/17 03:10 Blood Peripheral Aerobic Blood Culture - Preliminary NO GROWTH IN 1 DAY Resulted 07/11/17 03:10 Anaerobic Blood Culture - Preliminary Enterobacteriaceae Family Resulted Imaging Last Impressions Gall Bladder Ultrasound 07/11/17455 Signed Impressions: Service Date/Time: Tuesday, July 11, 2017 07:54 - CONCLUSION: 1. There is diffuse abdominal ascites. 2. The liver appears quite small and heterogeneous in echotexture consistent with cirrhosis. The patient has known pancreatic cancer with several small hepatic lesions. These were not seen by the ultrasound. I do not see evidence of intrahepatic biliary ductal dilation. The patient has a known biliary stent in place. 3. There is minimal sludge in the dependent portion the gallbladder. There is gallbladder wall thickening however, this is not an unexpected finding with the presence of ascites. Johnathan Marquis MD Head CT 07/11/17300 Signed Impressions: Service Date/Time: Tuesday, July 11, 2017 03:23 - CONCLUSION: No acute disease. Saad Lyons Jr., MD Chest X-Ray 07/11/17300 Signed Impressions: Service Date/Time: Tuesday, July 11, 2017 03:16 - CONCLUSION: Blunting of the right costophrenic angle I either related to a small effusion or pleural scarring. Otherwise, no infiltrates. 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 He has not been able to work since cancer diagnosis. to his x 18 yrs in October (they have a few times before marriage 18 yrs ago). Pt has 2 children, son and daughter, who are adults that live with them to assist w his care. 3 Yo grandchild also lives w them. Spiritual: No particular confucianist affiliation feels he would not want medical lab technician visits Legal:Pt is unable to participate in decisions due to confusion. Not clear if he will regain capacity. No written HCS or advanced directive. would be appropriate proxy per [place] statutes. Ethical issues impacting care: Important Contacts Kaia Navarro [phone] . Prognosis This patient was admitted for weakness, nausea vomiting, confusion and decreased oral intake. He has known history of metastatic pancreatic cancer diagnoses February 2016. He has had disease progression, has not tolerated chemotherapy, is status post 1 course of Keytruda 2-3 weeks ago. He has had significant weight loss, is now having significant liver dysfunction which is concerning to be secondary to disease process. He may not be a candidate for further aggressive cancer treatment. Appropriate for hospice if goals are compatible. . Code Status: Full Code Plan * Legal decision maker: Pt is unable to participate in decisions due to confusion. Not clear if he will regain capacity. No written HCS or advanced directive. would be appropriate proxy per [place] statutes. * Goals: Per initial discussion with 07/11/17 is hopeful patient acute issues can be stabilized and he can return home to resume treatment for his underlying cancer. She understands treatment is palliative in nature though she was hopeful he would get more time with this. Left my contact information for her today at the bedside 07/12/17, per oncology consultation yesterday she expressed aggressive goals * CODE STATUS: full code SYMPTOMS: --weakness - deconditioning, debilitated, progressive weight loss since initial cancer diagnosis. PT/OT ordered, patient chronically debilitated not likely to restore to prior levels of function and strength --Encephalopathy- hepatic,? Sepsis, on rifaximin, lactulose, ammonia 91, lactic acid 6, at times with episodes of confusion in the home setting primarily with hepatic dysfunction episodes or with pain medication occasionally --n/v/malnutrition- poor oral intake for the past few days taking only sips of fluids. One episode of emesis prior to admission following administration of pain medication. Prior that progressive weight loss over the past many months, and very little oral intake due to decreased appetite not feeling hungry. --Abdominal pain-unable to rate currently, describes ongoing abdominal pain and discomfort which worsens with ascites; some slight relief with use of prn oxycodone outpatient and paracentesis. Cautious use of opioids given altered mental status and risk for decline; has been ordered for oxycodone 5 mg every 6 hours prn-- monitor requirements/effectiveness Palliative care will continue to follow during hospital course as condition evolves, to assist patient/decision-maker with understanding of medical conditions, weighing benefits/burdens of treatment options, for clarification of goals of treatment. Additionally will assist with any symptoms of palliative concern (Suzanne Fernandez) Time Spent Total Floor Time (mins): 15 (Chart review, PE, discussion with nurse) (Suzanne Fernandez) Attestation To help prompt me to consider important information that might be impacting today's encounter and assessment, information from prior notes written by myself or my colleagues may have been "brought forward" into today's note. My signature on this note, however, is an attestation that I personally performed the exam, history, and/or decision-making noted today, and, unless otherwise indicated, the interactions with patient, family, and staff as well as the review of records all occurred today. I also attest that the listed assessment and stated plan reflect my best clinical judgment today based on the combination of historical information, prior notes, and today's exam/ interactions. When time spent is documented, it refers only to time spent today by the signer, or if indicated, combined time spent today by collaborating physician/nurse practitioner. (Suzanne Fernandez) Collaborating MD Comments Chart reviewed. Case discussed with palliative care PULMONARY FUNCTION TECHNOLOGIST. Above PULMONARY FUNCTION TECHNOLOGIST note reviewed and I concur. . (Eladio Freeman MD) Suzanne Fernandez Jul 12, 2017 12:24 Eladio Freeman MD Jul 18, 2017 14:55
--- NOTE | 2017-07-12 13:25 | HHI.GIFU ---
Subjective Remarks To patient down for MRI but unable to proceed with the procedure. Patient could not lie flat or still. currently in room, hoping to take patient home and that he will pull through this Patient is fairly drowsy and incapacitated at this time but did receive some pain medicines recently Sclera and skin are icteric No paracentesis has been done, pending? Objective Vitals I&O Vital Signs Date Time Temp Pulse Resp B/P (MAP) Pulse Ox O2 Delivery O2 Flow Rate FiO2 07/12/17 11:15 147/84 (105) 07/12/17 11:13 97.8 96 18 165/81 (109) 96 07/12/17 09:24 97.4 102 22 141/77 (98) 96 07/12/17 04:28 97.5 104 18 159/79 (105) 95 07/11/17 23:53 97.1 103 16 151/72 (98) 95 07/11/17 20:45 96.0 108 14 148/83 (104) 94 07/11/17 20:30 103 07/11/17 15:15 96.4 109 18 171/93 (119) 97 I/O 07/11/17 07/11/17 07/11/17 07/12/17 07/12/17 07/12/17 07:00 15:00 23:00 07:00 15:00 23:00 Intake Total 50 ml 50 ml 630 ml Output Total 1 ml 500 ml Balance 50 ml 49 ml 130 ml Intake Oral 0 ml 50 ml IV Total 50 ml 50 ml 580 ml Output Urine Total 1 ml 500 ml # Bowel Movements 1 Laboratory Laboratory Tests Test 07/11/17 14:30 07/11/17 22:30 07/12/17 03:55 White Blood Count 12.4 13.0 Red Blood Count 3.73 3.54 Hemoglobin 12.9 11.7 Hematocrit 35.8 34.2 Mean Corpuscular Volume 96.0 96.4 Mean Corpuscular Hemoglobin 34.6 33.1 Mean Corpuscular Hemoglobin Concent 36.0 34.3 Red Cell Distribution Width 17.8 17.4 Platelet Count 140 105 Mean Platelet Volume 8.2 7.4 Prothrombin Time 42.2 48.4 Prothromb Time International Ratio 4.2 4.8 Activated Partial Thromboplast Time 49.9 55.9 Total Bilirubin 20.4 18.7 Direct Bilirubin 14.2 Indirect Bilirubin 6.2 Lactate Dehydrogenase 271 Total Protein 7.1 6.3 Urine Color DARK-BROWN Urine Turbidity HAZY Urine pH 6.0 Urine Specific [place] 1.025 Urine Protein TRACE Urine Glucose (UA) NEG Urine Ketones 10 Urine Occult Blood SMALL Urine Nitrite NEG Urine Bilirubin LARGE Urine Urobilinogen LESS THAN 2.0 Urine Leukocyte Esterase NEG Urine RBC 1 Urine WBC 1 Urine Amorphous Sediment RARE Urine Bacteria RARE Urine Hyaline Casts 6 Urine Mucus FEW Microscopic Urinalysis Comment CULT NOT INDICATED Neutrophils (%) (Auto) 82.6 Lymphocytes (%) (Auto) 10.3 Monocytes (%) (Auto) 6.5 Eosinophils (%) (Auto) 0.3 Basophils (%) (Auto) 0.3 Neutrophils # (Auto) 10.7 Lymphocytes # (Auto) 1.3 Monocytes # (Auto) 0.9 Eosinophils # (Auto) 0.0 Basophils # (Auto) 0.0 CBC Comment DIFF FINAL Differential Comment Prothrombin Time Control 11.0 APTT Control 25.7 Mix PT Normal Plasma Immediate 10.7 Mix PT Normal Plasma 1 Hour 10.9 Mix PT Patient/Normal 1:4 Immediate 11.4 Mix PT Patient/Normal 1:1 Immediate 13.4 Mix PT Patient/Normal 1:1 1 Hr 37c 13.1 Mix PT Patient/Normal 4:1 Immediate 17.4 Mix PT Patient Pre-Incubation 53.5 Mix PTT Normal Plasma Immediate 24.9 Mix PTT Normal Plasma 1 Hour 25.9 Mix PTT Patient/Normal 1:4 Immed 24.5 Mix PTT Patient/Normal 1:1 26.4 Mix PTT Patient/Normal 1:1 1 Hr 37c 29.4 Mix PTT Patient/Normal 4:1 Immed 31.7 Mix PTT Patient Pre-Incubation 54.5 Coagulation Factor Inhibitor Screen Blood Urea Nitrogen 41 Creatinine 1.31 Random Glucose 117 Albumin 1.7 Calcium Level 7.6 Phosphorus Level 1.8 Magnesium Level 2.7 Alkaline Phosphatase 145 Aspartate Amino Transf (AST/SGOT) 103 Alanine Aminotransferase (ALT/SGPT) 46 Sodium Level 137 Potassium Level 3.9 Chloride Level 104 Carbon Dioxide Level 22.8 Anion Gap 10 Estimat Glomerular Filtration Rate 57 Ammonia 57 Amylase Level 25 Lipase 48 Free Thyroxine 1.49 Thyroid Stimulating Hormone 3rd Gen 0.148 Date/Time Source Procedure Growth Status 07/11/17 03:15 Blood Peripheral Aerobic Blood Culture - Preliminary NO GROWTH IN 1 DAY Resulted 1/2/18 03:15 Anaerobic Blood Culture - Preliminary Gram Negative Damaso Resulted Imaging Last Impressions Gall Bladder Ultrasound 07/11/17 8036 Signed Impressions: Service Date/Time: Tuesday, July 11, 2017 07:54 - CONCLUSION: 1. There is diffuse abdominal ascites. 2. The liver appears quite small and heterogeneous in echotexture consistent with cirrhosis. The patient has known pancreatic cancer with several small hepatic lesions. These were not seen by the ultrasound. I do not see evidence of intrahepatic biliary ductal dilation. The patient has a known biliary stent in place. 3. There is minimal sludge in the dependent portion the gallbladder. There is gallbladder wall thickening however, this is not an unexpected finding with the presence of ascites. Johnathan Marquis MD Head CT 07/11/17300 Signed Impressions: Service Date/Time: Tuesday, July 11, 2017 03:23 - CONCLUSION: No acute disease. Saad Lyons Jr., MD Chest X-Ray 07/11/17300 Signed Impressions: Service Date/Time: Tuesday, July 11, 2017 03:16 - CONCLUSION: Blunting of the right costophrenic angle I either related to a small effusion or pleural scarring. Otherwise, no infiltrates. Saad Lyons Jr., MD Physical Exam HEENT: Normocephalic, sclera dry eyes are glassy, icteric NECK: Neck thin CHEST: Low volumes CARDIAC: Regular rate ABDOMEN: Abdomen round, taut, soft minimal bowel sounds, tympanic alternating with some dull sounds on palpation EXTREMITIES: No edema. SKIN: Thin dry turgor, icteric ANIMAL TRAINER SUPERVISOR: Randomly opens eyes but nonverbal Assessment and Plan Assessment: (1) Jaundice ICD Codes: R17 - Unspecified jaundice Status: Acute Plan Continue nothing by mouth Monitor for any acute bleeding, very high risk with elevated INR Paracentesis is still pending, Labs to monitor which includes LFTs, alkaline phosphatase and bilirubin Palliative care, appreciate input, patient is critically ill and appears to be actively dying GI available as needed PPI IV Plan of care will be based on symptom management and toleration of any further testing. Patient was examined by myself and Dr. Carpenter, note was done on his behalf Mary Szymanski Jul 12, 2017 13:25
--- NOTE | 2017-07-12 15:40 | HHI.PR ---
Subjective Remarks patient looks very ill and debilitated, lethargic but arousable to verbal stimuli Afebrile overnight poor Prognosis Objective Vitals Vital Signs Date Time Temp Pulse Resp B/P (MAP) Pulse Ox O2 Delivery O2 Flow Rate FiO2 07/12/17 11:15 147/84 (105) 07/12/17 11:13 97.8 96 18 165/81 (109) 96 07/12/17 09:24 101 07/12/17 09:24 97.4 102 22 141/77 (98) 96 07/12/17 04:28 97.5 104 18 159/79 (105) 95 07/11/17 23:53 97.1 103 16 151/72 (98) 95 07/11/17 20:45 96.0 108 14 148/83 (104) 94 07/11/17 20:30 103 I/O 07/11/17 07/11/17 07/11/17 07/12/17 07/12/17 07/12/17 07:00 15:00 23:00 07:00 15:00 23:00 Intake Total 50 ml 50 ml 630 ml Output Total 1 ml 500 ml Balance 50 ml 49 ml 130 ml Intake Oral 0 ml 50 ml IV Total 50 ml 50 ml 580 ml Output Urine Total 1 ml 500 ml # Bowel Movements 1 Result Diagram: 07/12/17 0355 07/12/17 0355 Objective Remarks __GENERAL: This is frail elderly patient, lethargic CARDIOVASCULAR: Regular rate and rhythm without murmurs, gallops, or rubs. RESPIRATORY: fair air entry GASTROINTESTINAL: Abdomen soft,positive distention and ascites MUSCULOSKELETAL: Extremities without clubbing, cyanosis, or edema. NEURO: lethargic A/P Assessment and Plan 07/12/17: Blood culture came back gram-negative rods, increased lactic acid, palliative care consulted A/P: 1. Pancreatic cancer/AMS/Jaundice/bilirubinemia/hepatic encephalopathy T bili 21.5, ammonia 91, AST/ALT 91/47 Patient with history of pancreatic duct stent, concern for blockage. Ultrasound pending for further evaluation. Consult gastroenterology, medical oncology - appreciate recommendations Lactulose for elevated ammonia add rifaximin 2. Elevated lactic acid Suspect secondary to above Chest x-ray without infiltrates CBCmonitoring UA Vancomycin/Zosyn until infectious rule out completed Holding IV fluid hydration secondary to ascites and low albumin 3. Ascites Chronic Last paracentesis on 06/26 Continue Lasix 4. Hypertension Continue amlodipine 5. Coagulopathy severe probably secondary to liver metastases needs palliative care consult Physical therapy and occupational therapy to eval and treat Poor prognosis - FEN NPO Electrolytes: monitor and replete prn SHYANNs Jose Martin Guadarrama MD Jul 12, 2017 15:40
[2017-07-12 16:27] LABS: HEMOGLOBIN A1C 4.6 % (4.3-6.0)
[2017-07-12] MEDS: PANTOPRAZOLE SODIUM 40 MG VIAL IV PUSH SCH (16:34)
--- NOTE | 2017-07-12 19:41 | PD.ONC.PN ---
Subjective Subjective Remarks Non verbal, appears to have some recognition for his . Moves around bed. Objective Data Date Time Temp Pulse Resp B/P (MAP) Pulse Ox O2 Delivery O2 Flow Rate FiO2 07/12/17 16:39 97.1 101 20 149/76 (100) 97 07/12/17 11:15 147/84 (105) 07/12/17 11:13 97.8 96 18 165/81 (109) 96 07/12/17 09:24 101 07/12/17 09:24 97.4 102 22 141/77 (98) 96 07/12/17 04:28 97.5 104 18 159/79 (105) 95 07/11/17 23:53 97.1 103 16 151/72 (98) 95 07/11/17 20:45 96.0 108 14 148/83 (104) 94 07/11/17 20:30 103 07/12/17 07/12/17 07/12/17 07:00 15:00 23:00 Intake Total 630 ml 330 ml 85 ml Output Total 500 ml Balance 130 ml 330 ml 85 ml Result Diagram: 07/12/17 0355 07/12/17 0355 Laboratory Results Laboratory Tests Test 07/11/17 22:30 07/12/17 03:55 Urine Color DARK-BROWN Urine Turbidity HAZY Urine pH 6.0 Urine Specific Sutton 1.025 Urine Protein TRACE mg/dL Urine Glucose (UA) NEG mg/dL Urine Ketones 10 mg/dL Urine Occult Blood SMALL Urine Nitrite NEG Urine Bilirubin LARGE Urine Urobilinogen LESS THAN 2.0 MG/DL Urine Leukocyte Esterase NEG Urine RBC 1 /hpf Urine WBC 1 /hpf Urine Amorphous Sediment RARE Urine Bacteria RARE /hpf Urine Hyaline Casts 6 /lpf Urine Mucus FEW /lpf Microscopic Urinalysis Comment CULT NOT INDICATED White Blood Count 13.0 TH/MM3 Red Blood Count 3.54 MIL/MM3 Hemoglobin 11.7 GM/DL Hematocrit 34.2 % Mean Corpuscular Volume 96.4 FL Mean Corpuscular Hemoglobin 33.1 PG Mean Corpuscular Hemoglobin Concent 34.3 % Red Cell Distribution Width 17.4 % Platelet Count 105 TH/MM3 Mean Platelet Volume 7.4 FL Neutrophils (%) (Auto) 82.6 % Lymphocytes (%) (Auto) 10.3 % Monocytes (%) (Auto) 6.5 % Eosinophils (%) (Auto) 0.3 % Basophils (%) (Auto) 0.3 % Neutrophils # (Auto) 10.7 TH/MM3 Lymphocytes # (Auto) 1.3 TH/MM3 Monocytes # (Auto) 0.9 TH/MM3 Eosinophils # (Auto) 0.0 TH/MM3 Basophils # (Auto) 0.0 TH/MM3 CBC Comment DIFF FINAL Differential Comment Prothrombin Time 48.4 SEC Prothrombin Time Control 11.0 SEC Prothromb Time International Ratio 4.8 RATIO Activated Partial Thromboplast Time 55.9 SEC APTT Control 25.7 SEC Mix PT Normal Plasma Immediate 10.7 SEC Mix PT Normal Plasma 1 Hour 10.9 SEC Mix PT Patient/Normal 1:4 Immediate 11.4 SEC Mix PT Patient/Normal 1:1 Immediate 13.4 SEC Mix PT Patient/Normal 1:1 1 Hr 37c 13.1 SEC Mix PT Patient/Normal 4:1 Immediate 17.4 SEC Mix PT Patient Pre-Incubation 53.5 SEC PT Mixing Studies Interpretation Mix PTT Normal Plasma Immediate 24.9 SEC Mix PTT Normal Plasma 1 Hour 25.9 SEC Mix PTT Patient/Normal 1:4 Immed 24.5 SEC Mix PTT Patient/Normal 1:1 26.4 SEC Mix PTT Patient/Normal 1:1 1 Hr 37c 29.4 SEC Mix PTT Patient/Normal 4:1 Immed 31.7 SEC Mix PTT Patient Pre-Incubation 54.5 SEC Circulating Anticoagulant PTT Intrp Coagulation Factor Inhibitor Screen Blood Urea Nitrogen 41 MG/DL Creatinine 1.31 MG/DL Random Glucose 117 MG/DL Total Protein 6.3 GM/DL Albumin 1.7 GM/DL Calcium Level 7.6 MG/DL Phosphorus Level 1.8 MG/DL Magnesium Level 2.7 MG/DL Alkaline Phosphatase 145 U/L Aspartate Amino Transf (AST/SGOT) 103 U/L Alanine Aminotransferase (ALT/SGPT) 46 U/L Total Bilirubin 18.7 MG/DL Sodium Level 137 MEQ/L Potassium Level 3.9 MEQ/L Chloride Level 104 MEQ/L Carbon Dioxide Level 22.8 MEQ/L Anion Gap 10 MEQ/L Estimat Glomerular Filtration Rate 57 ML/MIN Ammonia 57 MCMOL/L Amylase Level 25 U/L Lipase 48 U/L Free Thyroxine 1.49 NG/DL Thyroid Stimulating Hormone 3rd Gen 0.148 uIU/ML Culture Results Microbiology Date/Time Source Procedure Growth Status 07/11/17 03:15 Blood Peripheral Aerobic Blood Culture - Preliminary NO GROWTH IN 1 DAY Resulted 07/11/17 03:15 Anaerobic Blood Culture - Preliminary Gram Negative Damaso Resulted 07/11/17 03:10 Blood Peripheral Aerobic Blood Culture - Preliminary NO GROWTH IN 1 DAY Resulted 07/11/17 03:10 Anaerobic Blood Culture - Preliminary Enterobacteriaceae Family Resulted Administered Medications Medications (Trade) Dose Ordered Sig/Gabriela Route PRN Reason Start Time Stop Time Status Last Admin Dose Admin Sodium Chloride (NS Flush) 2 ml BID IV FLUSH 07/11/17 09:00 07/12/17 09:29 Lactulose (Lactulose Liq) 30 ml QID PO 07/11/17 09:00 07/12/17 16:34 Piperacillin Sod/ Tazobactam Sod 50 ml @ 100 mls/hr Q6H IV 07/11/17 11:00 07/12/17 16:34 Amlodipine Besylate (Norvasc) 5 mg DAILY PO 07/11/17 09:00 07/12/17 09:29 Furosemide (Lasix) 20 mg DAILY PO 07/11/17 09:00 Future Hold 07/11/17 09:50 Oxycodone HCl (Roxicodone) 5 mg Q6H PRN PO PAIN 07/11/17 06:00 07/11/17 21:23 Rifaximin (Xifaxan) 550 mg BID PO 07/11/17 09:00 07/12/17 09:29 Vancomycin HCl 1250 mg/Sodium Chloride 262.5 ml @ 250 mls/hr Q18H IV 07/11/17 16:00 07/12/17 09:28 Pantoprazole Sodium (Protonix Inj) 40 mg Q24H IV PUSH 07/11/17 16:00 07/12/17 16:34 Clonidine (Catapres) 0.1 mg Q4H PRN PO SBP > 160 07/11/17 17:30 07/11/17 18:14 Dextrose/Sodium Chloride 1,000 ml @ 42 mls/hr [id number] IV 07/11/17 19:15 07/11/17 21:25 Objective Remarks GENERAL: Cachectic, jaundiced man, bitemporal wasting. SKIN: Warm and dry. HEAD: Normocephalic. EYES: No scleral icterus. No injection or drainage. NECK: Supple, trachea midline. No JVD or lymphadenopathy. LYMPHATIC: No adenopathy. CARDIOVASCULAR: Regular rate and rhythm without murmurs. RESPIRATORY: Breath sounds equal bilaterally. No accessory muscle use. GASTROINTESTINAL: Abdomen soft, non-tender, distended with fluid wave no guarding. EXTREMITIES: No cyanosis, or edema. MUSCULOSKELETAL: Adequate muscle tone. NEUROLOGICAL: Awake, but lethargic, confused. Turns in bed spontaneously. Assessment/Plan Problem List: (1) Pancreatic cancer ICD Codes: C25.9 - Malignant neoplasm of pancreas, unspecified Status: Acute Plan: Metastatic pancreatic cancer with presentation jaundice. Metal stent in place. Progressed on multiple lines chemotherapy, most recently on Keytruda. Cancer cachexia. New jaundice and ascites. GM - bacteremia. Confusion, coagulopathy and encephalopathy. Discussed with above finding. Discussed goal to treat potentially reversible condition as GM neg bacteremia, elevated ammonia. Discussed his liver disease with metastasis and potential for his to worsen, even through she hopes with all her heart he improves. agree to make patient no code, she understand underlying incurable malignancy, potential for harm in resuscitation out weigh good. Assessment 51 y/o man with metastatic pancreatic cancer admitted with jaundice, dx gm neg bacteremia. Plan 1. Cont Abx. 2. Change to no code. 3. Monitor response to treatment 4. Vitamin k for coagulopathy, FFP if needed. 5. Will discuss with GI, currently too ill for procedure evaluate stent, did not tolerate MRCP, US show no biliary dilatation. Jacque Tan MD Jul 12, 2017 19:41
[2017-07-13] VITALS (8 sets, daily range): BP systolic 143–168; BP diastolic 79–88; PULSE 84–103; RESP 14–18; TEMP 97–98.6; O2SAT 93–96
[2017-07-13] MEDS: DEXT 5%-NACL 0.9% 1000 ML INJ 1,000 ML IV SCH (00:27)
[2017-07-13] MEDS: VANCOMYCIN INJ 1,250 MG in SODIUM CHLOR 0.9% 250 ML INJ 250 ML IV SCH (03:26)
[2017-07-13] MEDS ORDERED: PHARMACY ORDERED LAB ONE (03:45)
[2017-07-13] MEDS: PIPERACIL-TAZO 3.375 GM PREMIX 50 ML IV SCH ×4 (04:52→22:42)
[2017-07-13] MEDS: RIFAXIMIN 550 MG TAB PO SCH ×2 (08:16→22:35)
[2017-07-13] MEDS: amLODIPine BESYLATE 5 MG TAB PO SCH (08:16)
[2017-07-13] MEDS: LACTULOSE SYRUP 20 GM/30 ML CUP PO SCH ×4 (08:16→22:36)
[2017-07-13] MEDS: DOCUSATE SODIUM 50 MG/SENNA 8.6 MG TAB PO SCH ×2 (08:22→21:00)
[2017-07-13] MEDS: SODIUM CHLORIDE 0.9% FLUSH 10 ML FLUSH IV FLUSH SCH ×2 (08:22→22:38)
--- NOTE | 2017-07-13 09:42 | PD.ONC.PN ---
Subjective Subjective Remarks Thirsty, wants something to drink. Hold a cup and straw. Denies pain. Objective Data Date Time Temp Pulse Resp B/P (MAP) Pulse Ox O2 Delivery O2 Flow Rate FiO2 07/13/17 07:49 97.0 100 18 146/82 (103) 96 07/13/17 04:00 100 07/13/17 03:30 98.6 100 14 168/88 (114) 96 07/12/17 23:49 97.6 99 12 160/87 (111) 96 07/12/17 20:30 98.7 102 14 165/79 (107) 96 07/12/17 20:30 92 07/12/17 16:39 97.1 101 20 149/76 (100) 97 07/12/17 11:15 147/84 (105) 07/12/17 11:13 97.8 96 18 165/81 (109) 96 07/13/17 07/13/17 07/13/17 07:00 15:00 23:00 Intake Total 1462.5 ml Balance 1462.5 ml Result Diagram: 07/12/17 0355 07/12/17 0355 Laboratory Results Laboratory Tests Test 07/13/17 03:20 Vancomycin Level Trough 19.0 MCG/ML Culture Results Microbiology Date/Time Source Procedure Growth Status 07/11/17 03:15 Blood Peripheral Aerobic Blood Culture - Preliminary NO GROWTH IN 1 DAY Resulted 07/11/17 03:15 Anaerobic Blood Culture - Preliminary Gram Negative Damaso Resulted 07/11/17 03:10 Blood Peripheral Aerobic Blood Culture - Preliminary NO GROWTH IN 1 DAY Resulted 07/11/17 03:10 Anaerobic Blood Culture - Preliminary Enterobacteriaceae Family Resulted Administered Medications Medications (Trade) Dose Ordered Sig/Gabriela Route PRN Reason Start Time Stop Time Status Last Admin Dose Admin Sodium Chloride (NS Flush) 2 ml BID IV FLUSH 07/11/17 09:00 07/12/17 21:11 Lactulose (Lactulose Liq) 30 ml QID PO 07/11/17 09:00 07/13/17 08:16 Piperacillin Sod/ Tazobactam Sod 50 ml @ 100 mls/hr Q6H IV 07/11/17 11:00 07/13/17 04:52 Amlodipine Besylate (Norvasc) 5 mg DAILY PO 07/11/17 09:00 07/13/17 08:16 Furosemide (Lasix) 20 mg DAILY PO 07/11/17 09:00 Future Hold 07/11/17 09:50 Oxycodone HCl (Roxicodone) 5 mg Q6H PRN PO PAIN 07/11/17 06:00 07/11/17 21:23 Rifaximin (Xifaxan) 550 mg BID PO 07/11/17 09:00 07/13/17 08:16 Pantoprazole Sodium (Protonix Inj) 40 mg Q24H IV PUSH 07/11/17 16:00 07/12/17 16:34 Clonidine (Catapres) 0.1 mg Q4H PRN PO SBP > 160 07/11/17 17:30 07/11/17 18:14 Dextrose/Sodium Chloride 1,000 ml @ 42 mls/hr [id number] IV 07/11/17 19:15 07/13/17 00:27 Objective Remarks GENERAL: Cachectic, jaundiced man, bitemporal wasting. More awake, responsive to questions. Requesting something to drink. SKIN: Warm and dry. Multiple bruising and senile purpura. HEAD: Normocephalic. EYES: No scleral icterus. No injection or drainage. NECK: Supple, trachea midline. No JVD or lymphadenopathy. LYMPHATIC: No adenopathy. CARDIOVASCULAR: Regular rate and rhythm without murmurs. RESPIRATORY: Breath sounds equal bilaterally. No accessory muscle use. GASTROINTESTINAL: Abdomen soft, non-tender, distended with fluid wave no guarding. EXTREMITIES: No cyanosis, or edema. MUSCULOSKELETAL: Adequate muscle tone. NEUROLOGICAL: Awake, still confused. Assessment/Plan Problem List: (1) Pancreatic cancer ICD Codes: C25.9 - Malignant neoplasm of pancreas, unspecified Status: Acute Plan: Metastatic pancreatic cancer with presentation jaundice. Metal stent in place. Progressed on multiple lines chemotherapy, most recently on Keytruda. Cancer cachexia. New jaundice and ascites. GM - bacteremia. Confusion, coagulopathy and encephalopathy. Discussed with above finding. Discussed goal to treat potentially reversible condition as GM neg bacteremia, elevated ammonia. Discussed his liver disease with metastasis and potential for his to worsen, even through she hopes with all her heart he improves. agree to make patient no code, she understand underlying incurable malignancy, potential for harm in resuscitation out weigh good. 1/04/18. Encephalopathy improve, more awake, responsive Response to Abx therapy. Consult with GI potentially more stable for ERCP to determine if obstruction of metal stent. Pending decision to proceed with procedure, plan for FFP before. Trial of fluid, consult with speech therapy. Await ammonia level. Defer paracentesis. Monitor response of coagulopathy to vitamin K. Assessment 51 y/o man with metastatic pancreatic cancer admitted with jaundice, dx gm neg bacteremia. Plan 1. Cont Abx. 2. No code. 3. Trial oral vitamin K 4. Speech/swallow consult 5. FFP prior to GI procedure Jacque Tan MD Jul 13, 2017 09:42
[2017-07-13] MEDS: PHYTONADIONE 5 MG/SWFI 5 ML ORAL SYR PO SCH (11:21)
--- NOTE | 2017-07-13 13:20 | HHI.HCPN ---
Reason for visit a. To assist with evaluation and management of symptoms including: weakness , n/v, pain, encephalopathy b. To assist medical decision maker(s) with: better understanding of current medical conditions; weighing benefits/burdens of medical treatment options; making medical treatment decisions. Subjective/Interval History Pt seen to follow up on comfort, goals. stable, neuro status improving slightly. No new labs or imaging today. ERCP held yesterday due to pt unable to tolerate being flat for. BC + gram neg rods. On vanco, zosyn. Oncology notes discussion w RE conditions/prognosis , appears remains hopeful/ goals remain aggressive at this time. [dual visit w Kareen CHOUDHURY] Pt seen in room, alert. Rn present for part of exam. Pt tracks examiner. Does follow some simple commands. Minimally verbal - does not answer my yes/no questions. will not state name, does not name . Asks for water. Calm, restful. Smiles at times. When asked how he is feeling he does say "terrible" , asked if he is hurting he replies "all over"- he is unable to further qualify. He is very tender w light touch to abdomen. D/w w nursing , she will admin prn oxycodone for pain. Following exam call to pt . Person answering indicates is en route to hospital, will try to meet w her at bedside. . Family/friend interactions 1400- later return to unit to meet w pt . Pt alert, seated on side of bed, nursing assisting w linen change. He is still confused though seems to recognize his . Asks for water. Met with at bedside, gently explore her recent discussions with oncology. She indicates they had some discussion that some of this could be his liver worsening, could be the cancer metastasis, though they would continue to aggressively treat infectious process, ascites and what other other acute issues that he might be able to resolve this admission. Gently explore with her that we may be able to continue to treat acute infection , and continue ongoing diagnostics and corrective treatments however even with these interventions disease progression would continue and at some point he will continue to experience decline secondary to underlying pancreatic cancer and significant liver dysfunction/failure. Gently explore that this could be in a matter of days to weeks, explore with her options if patient does continue to decline. He asked questions about home health. I explored the differences of home health versus hospice--and home health focus on curative/restorative, and that home health unlikely to meet patient ongoing needs. Further explore hospice roll, philosophy. She is tearful at times, indicates that the patient has always expressed that he did not want to in a hospital setting but wanted to be at his own home. Gently explore with her that as his disease disease progresses and if he continues to seek hospitalization it will become more likely that he may in fact during acute hospitalization. CXR with her hospice option services provided, and that they would attempt to assist with keeping him in place and managing his care in the home setting if at all possible. All questions answered, supportive listening provided. She indicates she wishes to take things one day at a time, I sense she is still struggling to accept that the patient is declining, and he is nearing end of his disease process. She does elaborate a further discussed CODE STATUS in that she knows he would not want resuscitation or machines and hence she elected DNR status. For now otherwise goals are aggressive to continue aggressive treatment course with the goal of getting patient back home, she is open to ongoing discussions. Advance Directives Living Will: Never completed Health Care Surrogate: Never completed Durable Power of Drug Coordinator: Never completed Objective Vital Signs Date Time Temp Pulse Resp B/P (MAP) Pulse Ox O2 Delivery O2 Flow Rate FiO2 07/13/17 11:27 103 18 143/79 (100) 93 07/13/17 07:49 97.0 100 18 146/82 (103) 96 07/13/17 04:00 100 07/13/17 03:30 98.6 100 14 168/88 (114) 96 07/12/17 23:49 97.6 99 12 160/87 (111) 96 07/12/17 20:30 98.7 102 14 165/79 (107) 96 07/12/17 20:30 92 07/12/17 16:39 97.1 101 20 149/76 (100) 97 Intake & Output 07/13/17 07/13/17 07:00 19:00 Intake Total 1462.5 ml Balance 1462.5 ml Intake Oral 100 ml IV Total 1362.5 ml # Voids 3 # Bowel Movements 3 Physical Exam CONSTITUTIONAL/GENERAL: This is a frail, cachectic ill-appearing patient TUBES/LINES/DRAINS: Port accessed right subclavian SKIN: +jaundice, + multiple areas scattered Ecchymoses on upper extremities. Dressing over reported skin tear right elbow. Skin warm and dry. EYES: Pupils 4 mm, sluggish reaction to light. Extraocular motions intact. + scleral icterus. No injection or drainage. Fundi not examined. ENT: Nose without bleeding or purulent drainage. Does not open mouth for me to visualize oropharynx.+ Poor dentition/caries CARDIOVASCULAR: Regular rate and rhythm without murmur. No JVD. Peripheral pulses symmetric. RESPIRATORY/CHEST: Symmetric, unlabored respirations. On room air. Clear to auscultation. Breath sounds equal bilaterally. GASTROINTESTINAL: Abdomen firm,very tender with exam, +distended. limited palpation secondary to grimacing/pain.+ Ascites. Bowel sounds normoactive. MUSCULOSKELETAL: Extremities without clubbing, cyanosis. trace edema to ankles . No joint tenderness or effusion noted. NEUROLOGICAL: Awake and alert. minimally verbal. Appears confused. Intermittently follows simple commands. Observe to move all 4 extremities moving self around in bed PSYCHIATRIC: no apparent anxiety. No apparent hallucinations or other psychotic thought process. Diagnostic Tests Laboratory Laboratory Tests Test 07/11/17 03:15 07/11/17 05:15 07/11/17 08:19 07/11/17 11:45 Prothrombin Time 39.5 SEC (9.8-11.6) Prothromb Time International Ratio 3.9 RATIO Activated Partial Thromboplast Time 50.1 SEC (24.3-30.1) Blood Urea Nitrogen 37 MG/DL (7-18) Creatinine 1.23 MG/DL (0.60-1.30) Random Glucose 101 MG/DL (74-106) Total Protein 7.4 GM/DL (6.4-8.2) Albumin 2.1 GM/DL (3.4-5.0) Calcium Level 8.0 MG/DL (8.5-10.1) Alkaline Phosphatase 184 U/L (45-117) Aspartate Amino Transf (AST/SGOT) 91 U/L (15-37) Alanine Aminotransferase (ALT/SGPT) 47 U/L (12-78) Total Bilirubin 21.5 MG/DL (0.2-1.0) Sodium Level 134 MEQ/L (136-145) Potassium Level 4.0 MEQ/L (3.5-5.1) Chloride Level 99 MEQ/L (98-107) Carbon Dioxide Level 25.9 MEQ/L (21.0-32.0) Anion Gap 9 MEQ/L (5-15) Estimat Glomerular Filtration Rate 62 ML/MIN (>89) Lactic Acid Level 6.3 mmol/L (0.4-2.0) 3.8 mmol/L (0.4-2.0) 5.2 mmol/L (0.4-2.0) Ammonia 91 MCMOL/L (11-32) Lipase 46 U/L (73-393) White Blood Count 7.8 TH/MM3 (4.0-11.0) Red Blood Count 3.80 MIL/MM3 (4.50-5.90) Hemoglobin 13.1 GM/DL (13.0-17.0) Hematocrit 36.7 % (39.0-51.0) Mean Corpuscular Volume 96.7 FL (80.0-100.0) Mean Corpuscular Hemoglobin 34.4 PG (27.0-34.0) Mean Corpuscular Hemoglobin Concent 35.6 % (32.0-36.0) Red Cell Distribution Width 17.4 % (11.6-17.2) Platelet Count 83 TH/MM3 (150-450) Mean Platelet Volume 7.7 FL (7.0-11.0) Neutrophils (%) (Auto) 80.3 % (16.0-70.0) Lymphocytes (%) (Auto) 11.7 % (9.0-44.0) Monocytes (%) (Auto) 7.1 % (0.0-8.0) Eosinophils (%) (Auto) 0.6 % (0.0-4.0) Basophils (%) (Auto) 0.3 % (0.0-2.0) Neutrophils # (Auto) 6.2 TH/MM3 (1.8-7.7) Lymphocytes # (Auto) 0.9 TH/MM3 (1.0-4.8) Monocytes # (Auto) 0.6 TH/MM3 (0-0.9) Eosinophils # (Auto) 0.0 TH/MM3 (0-0.4) Basophils # (Auto) 0.0 TH/MM3 (0-0.2) CBC Comment AUTO DIFF Differential Total Cells Counted 100 Neutrophils % (Manual) 66 % (16-70) Band Neutrophils % 18 % (0-6) Lymphocytes % 12 % (9-44) Monocytes % 3 % (0-8) Eosinophils % 1 % (0-4) Neutrophils # (Manual) 6.6 TH/MM3 (1.8-7.7) Differential Comment FINAL DIFF MANUAL Atypical Lymphocytes % (0-0) Toxic Vacuolation PRESENT (NONE SEEN) Platelet Estimate LOW (NORMAL) Platelet Morphology Comment NORMAL (NORMAL) Basophilic Stippling FAINT (NORMAL) Test 07/11/17 14:30 07/11/17 22:30 07/12/17 03:55 07/13/17 03:20 White Blood Count 12.4 TH/MM3 (4.0-11.0) 13.0 TH/MM3 (4.0-11.0) Red Blood Count 3.73 MIL/MM3 (4.50-5.90) 3.54 MIL/MM3 (4.50-5.90) Hemoglobin 12.9 GM/DL (13.0-17.0) 11.7 GM/DL (13.0-17.0) Hematocrit 35.8 % (39.0-51.0) 34.2 % (39.0-51.0) Mean Corpuscular Volume 96.0 FL (80.0-100.0) 96.4 FL (80.0-100.0) Mean Corpuscular Hemoglobin 34.6 PG (27.0-34.0) 33.1 PG (27.0-34.0) Mean Corpuscular Hemoglobin Concent 36.0 % (32.0-36.0) 34.3 % (32.0-36.0) Red Cell Distribution Width 17.8 % (11.6-17.2) 17.4 % (11.6-17.2) Platelet Count 140 TH/MM3 (150-450) 105 TH/MM3 (150-450) Mean Platelet Volume 8.2 FL (7.0-11.0) 7.4 FL (7.0-11.0) Prothrombin Time 42.2 SEC (9.8-11.6) 48.4 SEC (9.8-11.6) Prothromb Time International Ratio 4.2 RATIO 4.8 RATIO Activated Partial Thromboplast Time 49.9 SEC (24.3-30.1) 55.9 SEC (24.3-30.1) Total Bilirubin 20.4 MG/DL (0.2-1.0) 18.7 MG/DL (0.2-1.0) Direct Bilirubin 14.2 MG/DL (0.0-0.2) Indirect Bilirubin 6.2 MG/DL (0.0-0.8) Lactate Dehydrogenase 271 U/L (87-241) Total Protein 7.1 GM/DL (6.4-8.2) 6.3 GM/DL (6.4-8.2) Urine Color DARK-BROWN (YELLW/STRAW) Urine Turbidity HAZY (CLEAR) Urine pH 6.0 (5.0-8.5) Urine Specific [place] 1.025 (1.002-1.035) Urine Protein TRACE mg/dL (NEG-TRACE) Urine Glucose (UA) NEG mg/dL (NEG) Urine Ketones 10 mg/dL (NEG) Urine Occult Blood SMALL (NEG) Urine Nitrite NEG (NEG) Urine Bilirubin LARGE (NEG) Urine Urobilinogen LESS THAN 2.0 MG/DL (LESS Urine Leukocyte Esterase NEG (NEG) Urine RBC 1 /hpf (0-3) Urine WBC 1 /hpf (0-5) Urine Amorphous Sediment RARE Urine Bacteria RARE /hpf (NONE) Urine Hyaline Casts 6 /lpf (RARE) Urine Mucus FEW /lpf (OCC) Microscopic Urinalysis Comment CULT NOT INDICATED Neutrophils (%) (Auto) 82.6 % (16.0-70.0) Lymphocytes (%) (Auto) 10.3 % (9.0-44.0) Monocytes (%) (Auto) 6.5 % (0.0-8.0) Eosinophils (%) (Auto) 0.3 % (0.0-4.0) Basophils (%) (Auto) 0.3 % (0.0-2.0) Neutrophils # (Auto) 10.7 TH/MM3 (1.8-7.7) Lymphocytes # (Auto) 1.3 TH/MM3 (1.0-4.8) Monocytes # (Auto) 0.9 TH/MM3 (0-0.9) Eosinophils # (Auto) 0.0 TH/MM3 (0-0.4) Basophils # (Auto) 0.0 TH/MM3 (0-0.2) CBC Comment DIFF FINAL Differential Comment Prothrombin Time Control 11.0 SEC APTT Control 25.7 SEC Mix PT Normal Plasma Immediate 10.7 SEC Mix PT Normal Plasma 1 Hour 10.9 SEC Mix PT Patient/Normal 1:4 Immediate 11.4 SEC (9.8-11.6) Mix PT Patient/Normal 1:1 Immediate 13.4 SEC (9.8-11.6) Mix PT Patient/Normal 1:1 1 Hr 37c 13.1 SEC (9.8-11.6) Mix PT Patient/Normal 4:1 Immediate 17.4 SEC (9.8-11.6) Mix PT Patient Pre-Incubation 53.5 SEC (9.8-11.6) PT Mixing Studies Interpretation Mix PTT Normal Plasma Immediate 24.9 SEC (24.3-30.1) Mix PTT Normal Plasma 1 Hour 25.9 SEC Mix PTT Patient/Normal 1:4 Immed 24.5 SEC (24.3-30.1) Mix PTT Patient/Normal 1:1 26.4 SEC (24.3-30.1) Mix PTT Patient/Normal 1:1 1 Hr 37c 29.4 SEC (24.3-30.1) Mix PTT Patient/Normal 4:1 Immed 31.7 SEC (24.3-30.1) Mix PTT Patient Pre-Incubation 54.5 SEC (24.3-30.1) Circulating Anticoagulant PTT Intrp Coagulation Factor Inhibitor Screen Blood Urea Nitrogen 41 MG/DL (7-18) Creatinine 1.31 MG/DL (0.60-1.30) Random Glucose 117 MG/DL (74-106) Albumin 1.7 GM/DL (3.4-5.0) Calcium Level 7.6 MG/DL (8.5-10.1) Phosphorus Level 1.8 MG/DL (2.5-4.9) Magnesium Level 2.7 MG/DL (1.5-2.5) Alkaline Phosphatase 145 U/L (45-117) Aspartate Amino Transf (AST/SGOT) 103 U/L (15-37) Alanine Aminotransferase (ALT/SGPT) 46 U/L (12-78) Sodium Level 137 MEQ/L (136-145) Potassium Level 3.9 MEQ/L (3.5-5.1) Chloride Level 104 MEQ/L (98-107) Carbon Dioxide Level 22.8 MEQ/L (21.0-32.0) Anion Gap 10 MEQ/L (5-15) Estimat Glomerular Filtration Rate 57 ML/MIN (>89) Hemoglobin A1c 4.6 % (4.3-6.0) Ammonia 57 MCMOL/L (11-32) Amylase Level 25 U/L (25-115) Lipase 48 U/L (73-393) Free Thyroxine 1.49 NG/DL (0.76-1.46) Thyroid Stimulating Hormone 3rd Gen 0.148 uIU/ML (0.358-3.740) Vancomycin Level Trough 19.0 MCG/ML (5.0-10.0) Result Diagram: 07/12/17 0355 07/12/17 0355 Microbiology Microbiology Date/Time Source Procedure Growth Status 07/11/17 03:15 Blood Peripheral Aerobic Blood Culture - Preliminary NO GROWTH IN 2 DAYS Resulted 07/11/17 03:15 Anaerobic Blood Culture - Preliminary Gram Negative Damaso Resulted 07/11/17 03:10 Blood Peripheral Aerobic Blood Culture - Preliminary NO GROWTH IN 2 DAYS Resulted 07/11/17 03:10 Anaerobic Blood Culture - Preliminary Enterobacteriaceae Family Resulted Imaging Last Impressions Gall Bladder Ultrasound 07/11/174 Signed Impressions: Service Date/Time: Tuesday, July 11, 2017 07:54 - CONCLUSION: 1. There is diffuse abdominal ascites. 2. The liver appears quite small and heterogeneous in echotexture consistent with cirrhosis. The patient has known pancreatic cancer with several small hepatic lesions. These were not seen by the ultrasound. I do not see evidence of intrahepatic biliary ductal dilation. The patient has a known biliary stent in place. 3. There is minimal sludge in the dependent portion the gallbladder. There is gallbladder wall thickening however, this is not an unexpected finding with the presence of ascites. Johnathan Marquis MD Head CT 07/11/17300 Signed Impressions: Service Date/Time: Tuesday, July 11, 2017 03:23 - CONCLUSION: No acute disease. Saad Lyons Jr., MD Chest X-Ray 07/11/17300 Signed Impressions: Service Date/Time: Tuesday, July 11, 2017 03:16 - CONCLUSION: Blunting of the right costophrenic angle I either related to a small effusion or pleural scarring. Otherwise, no infiltrates. 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 He has not been able to work since cancer diagnosis. to his x 18 yrs in October (they have a few times before marriage 18 yrs ago). Pt has 2 children, son and daughter, who are adults that live with them to assist w his care. 3 Yo grandchild also lives w them. Spiritual: No particular mandaen affiliation feels he would not want frameman visits Legal:Pt is unable to participate in decisions due to confusion. Not clear if he will regain capacity. No written HCS or advanced directive. would be appropriate proxy per [place] statutes. Ethical issues impacting care: Important Contacts Kaia Navarro [phone] . Prognosis This patient was admitted for weakness, nausea vomiting, confusion and decreased oral intake. He has known history of metastatic pancreatic cancer diagnoses February 2016. He has had disease progression, has not tolerated chemotherapy, is status post 1 course of Keytruda 2-3 weeks ago. He has had significant weight loss, is now having significant liver dysfunction which is concerning to be secondary to disease process. He may not be a candidate for further aggressive cancer treatment. Appropriate for hospice if goals are compatible. . Code Status: Full Code Plan * Legal decision maker: Pt is unable to participate in decisions due to confusion. Not clear if he will regain capacity. No written HCS or advanced directive. would be appropriate proxy per [place] statutes. * Goals: has been expressing aggressive goals. Met again with patient today at length 07/13/17; she is struggling with patient decline in terminology. She is not ready for hospice yet, though we did discuss this at length. She affirms DNR status. For now goals aggressive she would like boost nutritional supplement added. * CODE STATUS: DNR SYMPTOMS: --weakness - deconditioning, debilitated, progressive weight loss since initial cancer diagnosis. PT/OT ordered, patient chronically debilitated not likely to restore to prior levels of function and strength --Encephalopathy- hepatic,? Sepsis, on rifaximin, lactulose, ammonia 91, lactic acid 6, at times with episodes of confusion in the home setting primarily with hepatic dysfunction episodes or with pain medication occasionally --n/v/malnutrition- poor oral intake for the past few days taking only sips of fluids. One episode of emesis prior to admission following administration of pain medication. Prior that progressive weight loss over the past many months, and very little oral intake due to decreased appetite not feeling hungry. --Abdominal pain-unable to rate currently, describes ongoing abdominal pain and discomfort which worsens with ascites; some slight relief with use of prn oxycodone outpatient and paracentesis. Cautious use of opioids given altered mental status and risk for decline; has been ordered for oxycodone 5 mg every 6 hours prn-- monitor requirements/effectiveness- d/w nursing today, pt c/ o pain "all over" Palliative care will continue to follow during hospital course as condition evolves, to assist patient/decision-maker with understanding of medical conditions, weighing benefits/burdens of treatment options, for clarification of goals of treatment. Additionally will assist with any symptoms of palliative concern Time Spent Total Floor Time (mins): 45 (Chart review, PE, discussion with nursing, discussion with attending, meeting with at bedside) Attestation To help prompt me to consider important information that might be impacting today's encounter and assessment, information from prior notes written by myself or my colleagues may have been "brought forward" into today's note. My signature on this note, however, is an attestation that I personally performed the exam, history, and/or decision-making noted today, and, unless otherwise indicated, the interactions with patient, family, and staff as well as the review of records all occurred today. I also attest that the listed assessment and stated plan reflect my best clinical judgment today based on the combination of historical information, prior notes, and today's exam/ interactions. When time spent is documented, it refers only to time spent today by the signer, or if indicated, combined time spent today by collaborating physician/nurse practitioner. Suzanne Fernandez Jul 13, 2017 13:20
--- NOTE | 2017-07-13 13:43 | HHI.PR ---
Subjective Remarks no change in clinical picture, very ill-appearing and poor prognosis changed to no code status today Objective Vitals Vital Signs Date Time Temp Pulse Resp B/P (MAP) Pulse Ox O2 Delivery O2 Flow Rate FiO2 07/13/17 11:27 103 18 143/79 (100) 93 07/13/17 07:49 97.0 100 18 146/82 (103) 96 07/13/17 07:00 100 07/13/17 04:00 100 07/13/17 03:30 98.6 100 14 168/88 (114) 96 07/12/17 23:49 97.6 99 12 160/87 (111) 96 07/12/17 20:30 98.7 102 14 165/79 (107) 96 07/12/17 20:30 92 07/12/17 16:39 97.1 101 20 149/76 (100) 97 I/O 07/12/17 07/12/17 07/12/17 07/13/17 07/13/17 07/13/17 07:00 15:00 23:00 07:00 15:00 23:00 Intake Total 630 ml 330 ml 85 ml 1462.5 ml Output Total 500 ml Balance 130 ml 330 ml 85 ml 1462.5 ml Intake Oral 50 ml 30 ml 100 ml IV Total 580 ml 330 ml 55 ml 1362.5 ml Output Urine Total 500 ml # Voids 5 3 # Bowel Movements 5 3 Result Diagram: 07/12/17 0355 07/12/17 0355 Objective Remarks __GENERAL: This is frail elderly patient, lethargic CARDIOVASCULAR: Regular rate and rhythm without murmurs, gallops, or rubs. RESPIRATORY: fair air entry GASTROINTESTINAL: Abdomen soft,positive distention and ascites MUSCULOSKELETAL: Extremities without clubbing, cyanosis, or edema. NEURO: lethargic A/P Assessment and Plan 07/12/17: Blood culture came back gram-negative rods, increased lactic acid, palliative care consulted 07/13/17: status change to DNR, continue following with palliative care, GI A/P: 1. Pancreatic cancer/AMS/Jaundice/bilirubinemia/hepatic encephalopathy T bili 21.5, ammonia 91, AST/ALT 91/47 Patient with history of pancreatic duct stent, concern for blockage. Ultrasound pending for further evaluation. Consult gastroenterology, medical oncology - appreciate recommendations Lactulose for elevated ammonia add rifaximin 2. Elevated lactic acid Chest x-ray without infiltrates CBCmonitoring follow cultures Vancomycin/Zosyn until infectious rule out completed Holding IV fluid hydration secondary to ascites and low albumin 3. Ascites Chronic Last paracentesis on 06/26 Continue Lasix 4. Hypertension Continue amlodipine 5. Coagulopathy severe probably secondary to liver metastases needs palliative care consult Physical therapy and occupational therapy to eval and treat Poor prognosis - FEN NPO Electrolytes: monitor and replete prn SCDs Jose Martin Guadarrama MD Jul 13, 2017 13:43
[2017-07-13] MEDS: PANTOPRAZOLE SODIUM 40 MG VIAL IV PUSH SCH (17:10)
[2017-07-14] VITALS (10 sets, daily range): BP systolic 118–147; BP diastolic 72–87; PULSE 80–99; RESP 14–21; TEMP 97.5–98; O2SAT 95–100
[2017-07-14] MEDS: VANCOMYCIN 1,000 MG/NS 250 ML IV SCH ×4 (01:12→16:56)
[2017-07-14] MEDS: DEXT 5%-NACL 0.9% 1000 ML INJ 1,000 ML IV SCH ×2 (01:14→18:42)
[2017-07-14] MEDS: PIPERACIL-TAZO 3.375 GM PREMIX 50 ML IV SCH ×4 (04:13→23:06)
[2017-07-14] MEDS: SODIUM CHLORIDE 0.9% FLUSH 10 ML FLUSH IV FLUSH SCH ×2 (07:57→21:20)
[2017-07-14] MEDS: amLODIPine BESYLATE 5 MG TAB PO SCH (07:57)
[2017-07-14] MEDS: PHYTONADIONE 5 MG/SWFI 5 ML ORAL SYR PO SCH (07:57)
[2017-07-14] MEDS: RIFAXIMIN 550 MG TAB PO SCH ×2 (07:57→21:20)
[2017-07-14] MEDS: LACTULOSE SYRUP 20 GM/30 ML CUP PO SCH ×4 (07:57→21:20)
[2017-07-14] MEDS: DOCUSATE SODIUM 50 MG/SENNA 8.6 MG TAB PO SCH ×2 (07:59→21:20)
[2017-07-14 08:43] LABS: PROTHROMBIN TIME - PATIENT 33.5 SEC (9.8-11.6)
[2017-07-14 08:44] LABS: INTERNATIONAL NORMALIZED RATIO 3.3 RATIO
--- NOTE | 2017-07-14 09:22 | HHI.GIFU ---
Subjective Remarks eyes open randomly When talking to him, turns head away redraw labs to check creatinine., BUN afebrile Objective Vitals I&O Vital Signs Date Time Temp Pulse Resp B/P (MAP) Pulse Ox O2 Delivery O2 Flow Rate FiO2 07/14/17 07:59 97.6 89 18 143/84 (103) 100 07/14/17 04:16 98.0 99 16 143/81 (101) 97 07/14/17 01:00 98.0 89 14 147/86 (106) 96 07/13/17 21:00 98.0 102 16 165/79 (107) 96 07/13/17 21:00 87 07/13/17 15:07 86 15 145/80 (101) 96 07/13/17 15:00 84 07/13/17 11:27 103 18 143/79 (100) 93 I/O 07/13/17 07/13/17 07/13/17 07/14/17 07/14/17 07/14/17 06:59 14:59 22:59 06:59 14:59 22:59 Intake Total 1462.5 ml 50 ml 1680 ml 480 ml Balance 1462.5 ml 50 ml 1680 ml 480 ml Intake Oral 100 ml 1680 ml 480 ml IV Total 1362.5 ml 50 ml # Voids 3 2 2 # Bowel Movements 3 2 2 Laboratory Laboratory Tests Test 07/14/17 07:51 Prothrombin Time 33.5 Prothromb Time International Ratio 3.3 Activated Partial Thromboplast Time 58.4 Date/Time Source Procedure Growth Status 07/11/17 03:15 Blood Peripheral Aerobic Blood Culture - Preliminary NO GROWTH IN 2 DAYS Resulted 07/11/17 03:15 Anaerobic Blood Culture - Preliminary Gram Negative Damaso Resulted Imaging Last Impressions Gall Bladder Ultrasound 07/11/17 2726 Signed Impressions: Service Date/Time: Tuesday, July 11, 2017 07:54 - CONCLUSION: 1. There is diffuse abdominal ascites. 2. The liver appears quite small and heterogeneous in echotexture consistent with cirrhosis. The patient has known pancreatic cancer with several small hepatic lesions. These were not seen by the ultrasound. I do not see evidence of intrahepatic biliary ductal dilation. The patient has a known biliary stent in place. 3. There is minimal sludge in the dependent portion the gallbladder. There is gallbladder wall thickening however, this is not an unexpected finding with the presence of ascites. Johnathan Marquis MD Head CT 07/11/17300 Signed Impressions: Service Date/Time: Tuesday, July 11, 2017 03:23 - CONCLUSION: No acute disease. Saad Lyons Jr., MD Chest X-Ray 07/11/17300 Signed Impressions: Service Date/Time: Tuesday, July 11, 2017 03:16 - CONCLUSION: Blunting of the right costophrenic angle I either related to a small effusion or pleural scarring. Otherwise, no infiltrates. Saad Lyons Jr., MD Physical Exam HEENT: Normocephalic, sclera dry eyes are glassy, icteric NECK: Neck thin CHEST: Low volumes CARDIAC: Regular rate ABDOMEN: Abdomen round, taut, minimal bowel sounds, tympanic alternating with some dull sounds on palpation EXTREMITIES: No edema. 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 Spoke to Dr. Carpenter for patient's plan of care. Due to the probable biliary obstructions, pancreatic mass with metastasis, patient is not a candidate for ERCP nor any other type of GI procedure workup. Initially Attempted MRCP when patient was first admitted, but he was unable to tolerate lying on table and holding still even with Ativan. May need mild sedation before going down for procedure. No contrast to be used due if patient has creat >2. Labs being redrawn today to check before MRCP According to the record paracentesis, was not completed on this patient and was canceled today. Now the patient is DO NOT RESUSCITATE , Diet can be what ever he tolerates or desires. At this point patient is not asking for any food to eat. Palliative care, appreciate input, patient is critically ill and appears to be actively dying GI will sign off PPI by mouth if patient can swallow Plan of care will be based on symptom management and toleration of any further testing. Patient was examined by myself , discussed with Dr. Carpenter, note was done on his behalf Mary Szymanski Jul 14, 2017 09:21
[2017-07-14 10:19] LABS: BASOPHIL % 0.2 % (0.0-2.0); EOSINOPHIL # 0.3 TH/MM3 (0-0.4); EOSINOPHIL % 1.8 % (0.0-4.0); HEMATOCRIT 36.2 % (39.0-51.0); HEMOGLOBIN 12.8 GM/DL (13.0-17.0); LYMPH % 9.6 % (9.0-44.0); LYMPHOCYTE # 1.5 TH/MM3 (1.0-4.8); MEAN CELL VOLUME 96.2 FL (80.0-100.0); MEAN CORPUSCULAR HEMOGLOBIN 33.9 PG (27.0-34.0); MEAN CORPUSCULAR HGB CONC 35.3 % (32.0-36.0); MEAN PLATELET VOLUME 7.7 FL (7.0-11.0); MONOCYTE # 0.9 TH/MM3 (0-0.9); NEUT % 82.4 % (16.0-70.0); PLATELET COUNT 85 TH/MM3 (150-450); RED BLOOD COUNT 3.76 MIL/MM3 (4.50-5.90); WHITE BLOOD COUNT 15.7 TH/MM3 (4.0-11.0)
[2017-07-14 10:36] LABS: ALBUMIN 1.9 GM/DL (3.4-5.0); CALCIUM 7.8 MG/DL (8.5-10.1); CREATININE 1.34 MG/DL (0.60-1.30); DIRECT BILIRUBIN ADULT 15.4 MG/DL (0.0-0.2); INDIRECT BILIRUBIN 6.7 MG/DL (0.0-0.8); TOTAL BILIRUBIN ADULT 22.1 MG/DL (0.2-1.0); TOTAL PROTEIN 6.7 GM/DL (6.4-8.2)
[2017-07-14 11:44] LABS: BANDS 5 % (0-6); CORRECTED NUCLEATED RBC 1 /100 WBC (0-0); LYMPHOCYTES 11 % (9-44); MONOCYTES 9 % (0-8); NEUTROPHIL # MANUAL DIFF 12.4 TH/MM3 (1.8-7.7); NUCLEATED RED BLOOD CELL 1 (0-0); POLYS (SEG NEUTROPHILS) 74 % (16-70)
[2017-07-14 11:45] LABS: OVALOCYTES 1+ (NORMAL)
--- NOTE | 2017-07-14 15:16 | PD.ONC.PN ---
Subjective Subjective Remarks Afebrile overnight. Patient resting in bed. Was unable to have MRCP this AM d/t presence of bb behind eye. Was unable to lay flat for ERCP yesterday. Objective Data Date Time Temp Pulse Resp B/P (MAP) Pulse Ox O2 Delivery O2 Flow Rate FiO2 07/14/17 12:00 98.0 89 20 137/87 (104) 95 07/14/17 08:00 90 07/14/17 07:59 97.6 89 18 143/84 (103) 100 07/14/17 04:16 98.0 99 16 143/81 (101) 97 07/14/17 01:00 98.0 89 14 147/86 (106) 96 07/13/17 21:00 98.0 102 16 165/79 (107) 96 07/13/17 21:00 87 07/14/17 07/14/17 07/14/17 07:00 15:00 23:00 Intake Total 480 ml Balance 480 ml Result Diagram: 07/14/17 0940 07/14/17 0940 Laboratory Results Laboratory Tests Test 07/14/17 07:51 07/14/17 09:40 Prothrombin Time 33.5 SEC Prothromb Time International Ratio 3.3 RATIO Activated Partial Thromboplast Time 58.4 SEC White Blood Count 15.7 TH/MM3 Red Blood Count 3.76 MIL/MM3 Hemoglobin 12.8 GM/DL Hematocrit 36.2 % Mean Corpuscular Volume 96.2 FL Mean Corpuscular Hemoglobin 33.9 PG Mean Corpuscular Hemoglobin Concent 35.3 % Red Cell Distribution Width 18.0 % Platelet Count 85 TH/MM3 Mean Platelet Volume 7.7 FL Neutrophils (%) (Auto) 82.4 % Lymphocytes (%) (Auto) 9.6 % Monocytes (%) (Auto) 6.0 % Eosinophils (%) (Auto) 1.8 % Basophils (%) (Auto) 0.2 % Neutrophils # (Auto) 13.0 TH/MM3 Lymphocytes # (Auto) 1.5 TH/MM3 Monocytes # (Auto) 0.9 TH/MM3 Eosinophils # (Auto) 0.3 TH/MM3 Basophils # (Auto) 0.0 TH/MM3 CBC Comment AUTO DIFF Differential Total Cells Counted 100 Neutrophils % (Manual) 74 % Band Neutrophils % 5 % Lymphocytes % 11 % Monocytes % 9 % Eosinophils % 1 % Neutrophils # (Manual) 12.4 TH/MM3 Nucleated Red Blood Cells 1 /100 WBC Differential Comment FINAL DIFF MANUAL Platelet Estimate LOW Platelet Morphology Comment NORMAL Ovalocytes 1+ Red Cell Morphology Comment Blood Urea Nitrogen 43 MG/DL Creatinine 1.34 MG/DL Random Glucose 138 MG/DL Total Protein 6.7 GM/DL Albumin 1.9 GM/DL Calcium Level 7.8 MG/DL Alkaline Phosphatase 152 U/L Aspartate Amino Transf (AST/SGOT) 120 U/L Alanine Aminotransferase (ALT/SGPT) 71 U/L Total Bilirubin 22.1 MG/DL Direct Bilirubin 15.4 MG/DL Sodium Level 138 MEQ/L Potassium Level 3.0 MEQ/L Chloride Level 105 MEQ/L Carbon Dioxide Level 23.0 MEQ/L Anion Gap 10 MEQ/L Estimat Glomerular Filtration Rate 56 ML/MIN Indirect Bilirubin 6.7 MG/DL Administered Medications Medications (Trade) Dose Ordered Sig/Gabriela Route PRN Reason Start Time Stop Time Status Last Admin Dose Admin Sodium Chloride (NS Flush) 2 ml BID IV FLUSH 07/11/17 09:00 07/13/17 22:38 Lactulose (Lactulose Liq) 30 ml QID PO 07/11/17 09:00 07/14/17 14:04 Piperacillin Sod/ Tazobactam Sod 50 ml @ 100 mls/hr Q6H IV 07/11/17 11:00 07/14/17 14:04 Amlodipine Besylate (Norvasc) 5 mg DAILY PO 07/11/17 09:00 07/14/17 07:57 Furosemide (Lasix) 20 mg DAILY PO 07/11/17 09:00 Future Hold 07/11/17 09:50 Oxycodone HCl (Roxicodone) 5 mg Q6H PRN PO PAIN 07/11/17 06:00 07/14/17 01:36 Rifaximin (Xifaxan) 550 mg BID PO 07/11/17 09:00 07/14/17 07:57 Pantoprazole Sodium (Protonix Inj) 40 mg Q24H IV PUSH 07/11/17 16:00 07/13/17 17:10 Clonidine (Catapres) 0.1 mg Q4H PRN PO SBP > 160 07/11/17 17:30 07/11/17 18:14 Dextrose/Sodium Chloride 1,000 ml @ 42 mls/hr [id number] IV 07/11/17 19:15 07/14/17 01:14 Vancomycin HCl 1000 mg/Sodium Chloride 250 ml @ 250 mls/hr Q18H IV 07/14/17 00:00 07/14/17 01:12 Phytonadione (Mephyton Liq) 5 mg DAILY PO 07/13/17 09:45 07/16/17 09:44 07/14/17 07:57 Objective Remarks GENERAL: malnourished, weak jaundiced patient lying in bed. SKIN: Warm and dry. HEAD: Normocephalic. EYES: ++ scleral icterus. No injection or drainage. NECK: Supple, trachea midline. CARDIOVASCULAR: Regular rate and rhythm RESPIRATORY: anterior ashley with rhonchi. GASTROINTESTINAL: Abdomen distended. EXTREMITIES: No cyanosis MUSCULOSKELETAL: Adequate muscle tone. NEUROLOGICAL: lethargic, confused Assessment/Plan Problem List: (1) Pancreatic cancer ICD Codes: C25.9 - Malignant neoplasm of pancreas, unspecified Status: Acute Plan: Metastatic pancreatic cancer with presentation jaundice. Metal stent in place. Progressed on multiple lines chemotherapy, most recently on Keytruda. Cancer cachexia. New jaundice and ascites. GM - bacteremia. Confusion, coagulopathy and encephalopathy. Discussed with above finding. Discussed goal to treat potentially reversible condition as GM neg bacteremia, elevated ammonia. Discussed his liver disease with metastasis and potential for his to worsen, even through she hopes with all her heart he improves. agree to make patient no code, she understand underlying incurable malignancy, potential for harm in resuscitation out weigh good. 07/13/17. Encephalopathy improve, more awake, responsive Response to Abx therapy. Consult with GI potentially more stable for ERCP to determine if obstruction of metal stent. Pending decision to proceed with procedure, plan for FFP before. Trial of fluid, consult with speech therapy. Await ammonia level. Defer paracentesis. Monitor response of coagulopathy to vitamin K. 07/14/17: remains confused. unable to have MRCP --monitor ammonia level. Assessment 51 y/o man with metastatic pancreatic cancer admitted with jaundice, dx gm neg bacteremia. Plan 1. continue antibiotics 2. monitor coags 3. patient unable to have MRCP or ERCP. Patient is hospice appropriate but is somewhat reluctant. will obtain CT abdomen for further clarification of extent of cancer and review results with . Attending Statement The exam, history, and the medical decision-making described in the above note were completed with the assistance of the mid-level provider. I reviewed and agree with the findings presented. I attest that I had a [id number] encounter with the patient on the same day, and personally performed and documented my assessment and findings in the medical record. Discussed with that pt had a good day, good BM, more alert. Anticipate he will have good days and parts not so good. Concerned that over all he will decline. He is too frail and risk too high to proceed with ERCP, unable to have MRCP. Discussed CT scan, expect to find disease progression in that setting. I have recommended palliative care and hospice. Discussed above with . We will continue discussion, supportive abx continue. Unable to do paracentesis due to coagulopathy. Mary Ann Hicks Jul 14, 2017 15:16 Jacque Tan MD Jul 14, 2017 20:06
[2017-07-14] MEDS ORDERED: DIATRIZOATE MEGLUM/DIATRIZOATE SOD 9 ML CUP PO ONE (16:00)
[2017-07-14] MEDS: PANTOPRAZOLE SODIUM 40 MG VIAL IV PUSH SCH (16:33)
--- NOTE | 2017-07-14 19:39 | HHI.PR ---
Subjective Remarks patient is more awake today and also simple question MRCP canceled due to having piece of metal in the eye Objective Vitals Vital Signs Date Time Temp Pulse Resp B/P (MAP) Pulse Ox O2 Delivery O2 Flow Rate FiO2 07/14/17 16:48 88 18 128/72 (90) 99 07/14/17 12:00 98.0 89 20 137/87 (104) 95 07/14/17 08:00 90 07/14/17 07:59 97.6 89 18 143/84 (103) 100 07/14/17 04:16 98.0 99 16 143/81 (101) 97 07/14/17 01:00 98.0 89 14 147/86 (106) 96 07/13/17 21:00 98.0 102 16 165/79 (107) 96 07/13/17 21:00 87 I/O 07/13/17 07/13/17 07/13/17 07/14/17 07/14/17 07/14/17 07:00 15:00 23:00 07:00 15:00 23:00 Intake Total 1462.5 ml 50 ml 1680 ml 480 ml 55 ml 1530 ml Output Total 350 ml Balance 1462.5 ml 50 ml 1680 ml 480 ml 55 ml 1180 ml Intake Oral 100 ml 1680 ml 480 ml 1200 ml IV Total 1362.5 ml 50 ml 55 ml 330 ml Output Urine Total 350 ml # Voids 3 2 2 # Bowel Movements 3 2 2 Result Diagram: 07/14/17 0940 07/14/17 0940 Objective Remarks __GENERAL: This is frail elderly patient, lethargic CARDIOVASCULAR: Regular rate and rhythm without murmurs, gallops, or rubs. RESPIRATORY: fair air entry GASTROINTESTINAL: Abdomen soft,positive distention and ascites MUSCULOSKELETAL: Extremities without clubbing, cyanosis, or edema. NEURO: lethargic A/P Assessment and Plan 07/12/17: Blood culture came back gram-negative rods, increased lactic acid, palliative care consulted 07/13/17: status change to DNR, continue following with palliative care, GI 07/14/17: Plan for MRCP canceled due to residual piece of metal in the eye, advanced to full liquid diet, appreciate positive care input, family still aiming for aggressive treatment, possible ERCP A/P: 1. Pancreatic cancer/AMS/Jaundice/bilirubinemia/hepatic encephalopathy T bili 21.5, ammonia 91, AST/ALT 91/47 Patient with history of pancreatic duct stent, concern for blockage. Ultrasound pending for further evaluation. Consult gastroenterology, medical oncology - appreciate recommendations Lactulose for elevated ammonia add rifaximin 2. Elevated lactic acid Chest x-ray without infiltrates CBCmonitoring follow cultures Vancomycin/Zosyn until infectious rule out completed Holding IV fluid hydration secondary to ascites and low albumin 3. Ascites Chronic Last paracentesis on 06/26 Continue Lasix 4. Hypertension Continue amlodipine 5. Coagulopathy severe probably secondary to liver metastases needs palliative care consult Physical therapy and occupational therapy to eval and treat Poor prognosis Jose Martin Guadarrama MD Jul 14, 2017 19:39
[2017-07-14] MEDS ORDERED: IOHEXOL 350 MG/ML 10 ML VIAL (for RAD DIAG) IVCONTRAST ONE (20:42)
--- NOTE | 2017-07-14 21:12 | RADRPT ---
EXAM DATE/TIME: 07/14/2017 20:33 [facility] COMPARISON: CT ABDOMEN & PELVIS W/O CONTRAST, May 19, 2017, 14:16. INDICATIONS : Jaundice; history of pancreatic cancer. IV CONTRAST: 97 cc Omnipaque 350 (iohexol) IV ORAL CONTRAST: Prescribed oral contrast ingested. RADIATION DOSE: 14.79 CTDIvol (mGy) MEDICAL HISTORY : Carcinoma, pancreas. Hypertension. SURGICAL HISTORY : biliary duct stent ENCOUNTER: Subsequent ACUITY: 4 - 6 days PAIN SCALE: 6/10 LOCATION: abdomen TECHNIQUE: Volumetric scanning of the abdomen and pelvis was performed. Using automated exposure control and ad justment of the mA and/or kV according to patient size, radiation dose was kept as low as reasonably achievable to obtain optimal diagnostic quality images. DICOM format image data is available electro nically for review and comparison. FINDINGS: There are innumerable metastatic lesions in the liver that have progressed since prior examinations. No acute findings in the spleen or kidneys or adrenals. Biliary stent present with dilatation of the bile duct. There is severe ascites in the abdomen and pelvis. No bowel obstruction. There is a mild i leus. Mills catheter in the bladder. There is an ill-defined mass in the pancreatic head measuring at least 3.5 cm in diameter dilatation of the pancreatic duct. There is a moderate-sized right pleural effusion with compressive atelectasis. Mild left basilar atel ectasis. A hiatal hernia is present. Bony metastatic disease is present with sclerotic lesions in the lower thoracic spine, lumbar spine proximal femora, larger on the right similar to prior examination in May. There is mild anasarca. CONCLUSION: 1. Marked progression in metastatic disease with innumerable hepatic metastases and severe ascites. P robable small peritoneal implants around the liver. 2. There is a biliary stent present with bile duct dilated to 2 cm. 3. 3.5 cm ill-defined pancreatic mass with pancreatic ductal dilatation distal to the mass. 4. Numerous bony metastases without evidence for acute fracture. Bebo Loaiza MD on July 14, 2017 at 21:05 Board Certified Radiologist. This report was verified electronically.
[2017-07-15 04:00] VITALS: PULSE 80
[2017-07-15] MEDS: DEXT 5%-NACL 0.9% 1000 ML INJ 1,000 ML IV SCH (04:34)
[2017-07-15] MEDS: PIPERACIL-TAZO 3.375 GM PREMIX 50 ML IV SCH ×2 (04:34→12:23)
[2017-07-15 04:40] VITALS: BP 129/75; PULSE 82; RESP 18; TEMP 97.3; O2SAT 95
[2017-07-15 08:47] VITALS: BP 124/78; PULSE 84; RESP 20; O2SAT 96
[2017-07-15] MEDS: SODIUM CHLORIDE 0.9% FLUSH 10 ML FLUSH IV FLUSH SCH (09:00)
[2017-07-15] MEDS: amLODIPine BESYLATE 5 MG TAB PO SCH (09:05)
[2017-07-15] MEDS: RIFAXIMIN 550 MG TAB PO SCH (09:05)
[2017-07-15] MEDS: LACTULOSE SYRUP 20 GM/30 ML CUP PO SCH ×2 (09:05→13:12)
[2017-07-15] MEDS: PHYTONADIONE 5 MG/SWFI 5 ML ORAL SYR PO SCH (09:05)
[2017-07-15] MEDS: DOCUSATE SODIUM 50 MG/SENNA 8.6 MG TAB PO SCH (09:05)
--- NOTE | 2017-07-15 11:46 | PD.ONC.PN ---
Subjective Subjective Remarks Afebrile overnight. Patient confused, lethargic. I called and spoke with , she is on her way to the hospital. Objective Data Date Time Temp Pulse Resp B/P (MAP) Pulse Ox O2 Delivery O2 Flow Rate FiO2 07/15/17 08:47 84 20 124/78 (93) 96 07/15/17 04:40 97.3 82 18 129/75 (93) 95 07/15/17 04:00 80 07/14/17 23:09 81 07/14/17 23:04 97.6 82 21 119/77 (91) 98 07/14/17 21:14 97.5 85 18 118/77 (91) 97 07/14/17 20:15 80 07/14/17 16:48 88 18 128/72 (90) 99 07/14/17 12:00 98.0 89 20 137/87 (104) 95 07/15/17 07/15/17 07/15/17 07:00 15:00 23:00 Intake Total 600 ml Output Total 153 ml Balance 447 ml Result Diagram: 07/14/17 0940 07/14/17 0940 Administered Medications Medications (Trade) Dose Ordered Sig/Gabriela Route PRN Reason Start Time Stop Time Status Last Admin Dose Admin Sodium Chloride (NS Flush) 2 ml BID IV FLUSH 07/11/17 09:00 07/14/17 21:20 Senna/Docusate Sodium (Tatyana-Colace) 1 tab BID PO 07/11/17 09:00 07/15/17 09:05 Lactulose (Lactulose Liq) 30 ml QID PO 07/11/17 09:00 07/15/17 09:05 Piperacillin Sod/ Tazobactam Sod 50 ml @ 100 mls/hr Q6H IV 07/11/17 11:00 07/15/17 04:34 Amlodipine Besylate (Norvasc) 5 mg DAILY PO 07/11/17 09:00 07/15/17 09:05 Furosemide (Lasix) 20 mg DAILY PO 07/11/17 09:00 Future Hold 07/11/17 09:50 Oxycodone HCl (Roxicodone) 5 mg Q6H PRN PO PAIN 07/11/17 06:00 07/14/17 16:55 Rifaximin (Xifaxan) 550 mg BID PO 07/11/17 09:00 07/15/17 09:05 Pantoprazole Sodium (Protonix Inj) 40 mg Q24H IV PUSH 07/11/17 16:00 07/14/17 16:33 Clonidine (Catapres) 0.1 mg Q4H PRN PO SBP > 160 07/11/17 17:30 07/11/17 18:14 Dextrose/Sodium Chloride 1,000 ml @ 42 mls/hr [id number] IV 07/11/17 19:15 07/15/17 04:34 Vancomycin HCl 1000 mg/Sodium Chloride 250 ml @ 250 mls/hr Q18H IV 07/14/17 00:00 07/14/17 16:56 Phytonadione (Mephyton Liq) 5 mg DAILY PO 07/13/17 09:45 07/16/17 09:44 07/15/17 09:05 Objective Remarks GENERAL: severely malnourished male, lying in bed. SKIN: Warm and dry. jaundiced. HEAD: Normocephalic. EYES: ++ scleral icterus. No injection or drainage. NECK: Supple, trachea midline. CARDIOVASCULAR: +S1/S2 RESPIRATORY: anterior ashley with rhonchi. GASTROINTESTINAL: Abdomen distended with ascites. EXTREMITIES: No cyanosis MUSCULOSKELETAL: severely deconditioned, muscle wasting throughout. NEUROLOGICAL: lethargic, confused Assessment/Plan Problem List: (1) Pancreatic cancer ICD Codes: C25.9 - Malignant neoplasm of pancreas, unspecified Status: Acute Plan: Metastatic pancreatic cancer with presentation jaundice. Metal stent in place. Progressed on multiple lines chemotherapy, most recently on Keytruda. Cancer cachexia. New jaundice and ascites. GM - bacteremia. Confusion, coagulopathy and encephalopathy. Discussed with above finding. Discussed goal to treat potentially reversible condition as GM neg bacteremia, elevated ammonia. Discussed his liver disease with metastasis and potential for his to worsen, even through she hopes with all her heart he improves. agree to make patient no code, she understand underlying incurable malignancy, potential for harm in resuscitation out weigh good. 07/13/17. Encephalopathy improve, more awake, responsive Response to Abx therapy. Consult with GI potentially more stable for ERCP to determine if obstruction of metal stent. Pending decision to proceed with procedure, plan for FFP before. Trial of fluid, consult with speech therapy. Await ammonia level. Defer paracentesis. Monitor response of coagulopathy to vitamin K. 07/14/17: remains confused. unable to have MRCP --monitor ammonia level. 07/15/17: patient continues to deteriorate. will discuss results of CT with / decision maker when she arrives, patient is hospice appropriate. Assessment 51 y/o man with metastatic pancreatic cancer admitted with jaundice, dx gm neg bacteremia. Plan 1. continue supportive care. 2. plan to discuss CT results with when she arrives. patient is hospice appropriate. Mary Ann Hicks Jul 15, 2017 11:46
[2017-07-15] MEDS: VANCOMYCIN 1,000 MG/NS 250 ML IV SCH ×2 (12:00)
[2017-07-15 12:22] VITALS: BP 122/72; PULSE 78; RESP 20; O2SAT 97
--- NOTE | 2017-07-15 15:51 | HHI.DS ---
Discharge Summary Admission Date Jul 11, 2017 at 05:17 Discharge Date: Jul 15, 2017 Admitting Diagnosis jaundice. Hepatic encephalopathy. History of pancreatic cancer. (1) Primary malignant neoplasm of pancreas with metastasis to other site ICD Code: C25.9 - Malignant neoplasm of pancreas, unspecified Status: Acute Procedures none Brief History - From Admission 51-year-old male with a past medical history significant for pancreatic cancer and hypertension presents to the emergency department with altered mental status that began yesterday. The patient's reports that he has had intermittent coughing and vomiting for the past 2 days. She reports that yesterday he became altered describing him as confused and disoriented. The patient did not know where he was when he was in his own home. She also reports noticing increased scleral icterus and jaundice that began on 07/08. Vision is currently undergoing chemotherapy. His oncologist is Dr. Tan. On arrival to the emergency department the patient was tachycardic at 124. He was afebrile at 97.9. BP 179/100. Pulse ox 95% on room air. Lab values significant for a total bilirubin of 21.5 (was 1.8 on 06/28). Ammonia 91. Lactic acid 6.3. CBC pending. Head CT negative for acute intracranial process. The patient is altered, A&O 0. CBC/BMP: 07/14/17 0940 07/14/17 0940 Significant Findings Laboratory Tests Test 07/13/17 03:20 07/14/17 07:51 07/14/17 09:40 Vancomycin Level Trough 19.0 MCG/ML (5.0-10.0) Prothrombin Time 33.5 SEC (9.8-11.6) Activated Partial Thromboplast Time 58.4 SEC (24.3-30.1) White Blood Count 15.7 TH/MM3 (4.0-11.0) Red Blood Count 3.76 MIL/MM3 (4.50-5.90) Hemoglobin 12.8 GM/DL (13.0-17.0) Hematocrit 36.2 % (39.0-51.0) Red Cell Distribution Width 18.0 % (11.6-17.2) Platelet Count 85 TH/MM3 (150-450) Neutrophils (%) (Auto) 82.4 % (16.0-70.0) Neutrophils # (Auto) 13.0 TH/MM3 (1.8-7.7) Neutrophils % (Manual) 74 % (16-70) Monocytes % 9 % (0-8) Neutrophils # (Manual) 12.4 TH/MM3 (1.8-7.7) Nucleated Red Blood Cells 1 /100 WBC (0-0) Platelet Estimate LOW (NORMAL) Ovalocytes 1+ (NORMAL) Blood Urea Nitrogen 43 MG/DL (7-18) Creatinine 1.34 MG/DL (0.60-1.30) Random Glucose 138 MG/DL (74-106) Albumin 1.9 GM/DL (3.4-5.0) Calcium Level 7.8 MG/DL (8.5-10.1) Alkaline Phosphatase 152 U/L (45-117) Aspartate Amino Transf (AST/SGOT) 120 U/L (15-37) Total Bilirubin 22.1 MG/DL (0.2-1.0) Direct Bilirubin 15.4 MG/DL (0.0-0.2) Potassium Level 3.0 MEQ/L (3.5-5.1) Estimat Glomerular Filtration Rate 56 ML/MIN (>89) Indirect Bilirubin 6.7 MG/DL (0.0-0.8) PE at Discharge GENERAL: Very altered not able to answer questions appropriately very jaundiced yellow very confused not appropriate SKIN: Warm and dry. Severe jaundice HEAD: Atraumatic. Normocephalic. EYES: Pupils equal and round. Severe scleral icterus. No injection or drainage. ENT: No nasal bleeding or discharge. Mucous membranes pink and moist. Tongue is midline NECK: Trachea midline. No JVD. Supple CARDIOVASCULAR: Regular rate and rhythm. S1 and S2 no S3 or S4 RESPIRATORY: No accessory muscle use. Few rhonchi. Breath sounds equal bilaterally. GASTROINTESTINAL: Abdomen soft, non-tender. Hepatic and splenic margins not palpable. Positive Distended positive ascites MUSCULOSKELETAL: Extremities without clubbing, cyanosis, or edema. No obvious deformities. NEUROLOGICAL: Awake and alert. No obvious cranial nerve deficits. Motor grossly within normal limits. 4 out of 5 muscle strength in the arms and legs. ABNormal speech. PSYCHIATRIC: INAppropriate mood and affect; insight and judgment ABnormal. Very confused not Hospital Course 51M with pancreatic cancer who was admitted with altered mental status. His condition has improved slightly due to reduction of his ammonia level. In addition to chronically elevated ammonia he also has a baseline INR of 3.4. Overall he is nearing the end of his life and his has come to terms with that. They have elected for hospice care center and a discharge has been requested. Pt Condition on Discharge: Deteriorating Discharge Disposition: Hospice/Med Facility Discharge Time: <= 30 minutes Discharge Instructions DIET: Follow Instructions for: As Tolerated, No Restrictions Activities you can perform: Continue Bedrest Malik Temple MD Jul 15, 2017 15:51
[2017-07-15] MEDS: PANTOPRAZOLE SODIUM 40 MG VIAL IV PUSH SCH (16:31)
[2017-07-15 16:36] VITALS: BP 105/67; PULSE 79; RESP 20; O2SAT 96
[2017-07-16] MEDS ORDERED: PHARMACY ORDERED LAB ONE (05:45)
== END 2017-07-15 17:47 | disposition hospice, inpatient (51) | DRG 442 ==
LOC: NEPC 02:36 → NEDA 05:17 → HCIN 06:18 → HCPC 19:30 → HCIN 07-13 19:48
PROVIDERS: ADMIT Family Medicine; ATTEND Family Medicine
DX: K72.90 Hepatic failure, unspecified without coma (principal); C25.9 Malignant neoplasm of pancreas, unspecified; R64 Cachexia; C78.7 Secondary malignant neoplasm of liver and intrahepatic bile duct; C79.51 Secondary malignant neoplasm of bone; D68.4 Acquired coagulation factor deficiency; E46 Unspecified protein-calorie malnutrition; R78.81 Bacteremia; E87.2 Acidosis; R18.8 Other ascites; I10 Essential (primary) hypertension; R00.0 Tachycardia, unspecified; K74.60 Unspecified cirrhosis of liver; Z66 Do not resuscitate; G89.29 Other chronic pain; J44.9 Chronic obstructive pulmonary disease, unspecified; Z87.891 Personal history of nicotine dependence
CPT/HCPCS: 70450; 71045; 74177; 76705; 80048; 80053; 80076; 80202; 81001; 82140; 82150; 82247; 82248; 82948; 83036; 83605; 83615; 83690; 83735; 84100; 84155; 84439; 84443; 85007; 85025; 85027; 85335; 85610; 85730; 87040; 87077; 87186; 87205; 96365; 96368; C9113; J2060; J2543; J3370; J3430; J7030; J7042; J7050; Q9963; Q9967